=== PATIENT | female | born 1940 | race Caucasian/White ===

== ENCOUNTER 2019-07-30 09:41 | Outpatient (CLI) | payer MEDICARE, OTHER, SELFPAY ==
--- NOTE | 2019-07-30 09:45 | ECG_ITS ---
Measurements Intervals [place] Rate: 68 P: 27 DC: 209 QRS: -7 QRSD: 106 T: 20 QT: 418 QTc: 445 Interpretive Statements SINUS RHYTHM NORMAL ECG Electronically Signed On 07-30-2019 10:26:00 MANAGER SAFE by Jesus Manuel Dash D.O.
[2019-07-30 10:15] LABS: Basophils Percent Auto 0.5 % (0.2-1.2); Eosinophils Absolute Auto 0.3 K/mm3 (0-0.3); Eosinophils Percent Auto 3.6 % (0-4.4); Hematocrit 43.7 % (37.0-47.0); Hemoglobin 13.4 g/dL (12.0-15.0); Immature Granulocyte Absolute 0.03 K/mm3 (0.00-0.031); Immature Granulocyte Percent A 0.4 % (0-0.5); Lymphocytes Absolute Auto 2.16 K/mm3 (0.9-3.2); Mean Corpuscular HGB Conc 30.7 g/dl (32-36); Mean Corpuscular Hemoglobin 26.3 pg (26-34); Mean Corpuscular Volume 85.9 fl (80-100); Mean Platelet Volume 11.4 fl (7.4-10.4); Monocytes Absolute Auto 0.6 K/mm3 (0.1-0.6); Monocytes Percent Auto 7.4 % (2.6-8.5); Neutrophils Absolute Auto 4.4 K/mm3 (1.3-6.7); Neutrophils Percent Auto 59.1 % (45.5-73.1); Platelet Count Result 187 k/mm3 (150-375); Red Blood Count 5.09 M/mm3 (4.2-5.4); White Blood Count 7.4 K/mm3 (4.5-10.0)
[2019-07-30 10:44] LABS: Anisocytosis 2+ (NORMAL); Hypochromasia 2+ (NORMAL); Platelet Estimate Adequate (Adequate)
[2019-07-30 10:56] LABS: Iron 69 ug/dL (37-170)
[2019-07-30 11:05] LABS: Percent Iron Saturation 16 % (20-50)
[2019-07-30 11:50] LABS: Folic Acid 9.1 ng/mL (2.76->20)
== END 2019-07-30 09:42 | disposition home or self-care (01) ==
PROVIDERS: PCP Internal Medicine; Visit Provider Nurse Practitioner
DX: R07.9 Chest pain, unspecified (principal); D64.9 Anemia, unspecified
CPT/HCPCS: 36415; 82607; 82728; 82746; 83540; 83550; 85025; 85055; 93005

== ENCOUNTER 2019-08-14 01:04 | Day surgery (SDC) | payer MEDICARE, OTHER, SELFPAY ==
[2019-08-11 14:12] VITALS: BMI 35.1
[2019-08-14 10:12] VITALS: BP 152/93; PULSE 78; RESP 18; TEMP 36.7; O2SAT 99
--- NOTE | 2019-08-14 10:34 | WPDANESEPPF ---
Anes - Initial Pre Proc Eval Procedure: Operation Date: 08/14/19 10:00 Proposed Procedures p Esophagogastroduodenoscopy & Screening Colonoscopy - Isac De Paz MD Date/Time: 08/14/19 10:34 Surgeon: Isac De Paz MD Pre Op Diagnosis: anemia, neoplasm screening Patient Data Age: 79 Gender: F Height: 5 ft 3 in Weight: 101.3 kg Last Vital Signs Temp 36.7 C 08/14/19 10:12 Pulse 78 08/14/19 10:12 Resp 18 08/14/19 10:12 BP 152/93 H 08/14/19 10:12 Pulse Ox 99 08/14/19 10:12 Allergies Allergy/AdvReac Type Severity Reaction Status Date / Time Sulfa (Sulfonamide Allergy Mild Rash Verified 08/14/19 10:11 Antibiotics) shellfish derived Allergy Unknown Verified 08/14/19 10:11 Home Medications Medication Instructions Recorded Confirmed Type ferrous sulfate 325 mg (65 mg 325 mg PO DAILY #90 tablet 05/29/19 08/14/19 Rx iron) tablet docusate sodium 100 mg capsule 100 mg PO DAILY 07/30/19 08/14/19 History esomeprazole magnesium 40 mg 40 mg PO DAILY #90 cap 07/30/19 08/14/19 Rx capsule,delayed release cefdinir 300 mg PO Q12H 08/11/19 08/14/19 History cholecalciferol (vitamin D3) 4,000 unit PO DAILY 08/11/19 08/14/19 History [Vitamin D3] docusate sodium 50 mg PO DAILY 08/11/19 08/11/19 History pramipexole 0.125 mg PO BID 08/11/19 08/14/19 History pravastatin 20 mg PO DAILY 08/11/19 08/14/19 History pregabalin 150 mg PO HS 08/11/19 08/14/19 History tramadol 50 mg PO Q6H PRN 08/11/19 08/14/19 History valsartan 320 mg PO DAILY 08/11/19 08/14/19 History Patient hx anesthesia problems: none Family hx anesthesia problems: none PMFSH Past Medical History Medical History Depression GERD (gastroesophageal reflux disease) Hyperlipidemia Hypertension IBS (irritable bowel syndrome) Low back pain Post-menopausal Surgical History Surgical History History of back surgery 05/2016 Hx of total knee arthroplasty BL: 2014 Family History Family History Sibling Family history of Alzheimer's disease Breast cancer Father Heart disease Alcoholism Mother Pneumonia Social History Social History Smoking status: Former smoker Smoking end date: 06/18/72 Alcohol intake: current Substance use: never Gender identity (if verbalized by the patient): Female Anes - Eval Final PreProcedure Day of Procedure 08/14/19 10:34 Patient weight: morbidly obese Heart: regular rate and rhythm Lungs: clear to auscultation Airway: Mallampati scale Neurological: alert and oriented Last oral intake: >/= 8 hours ASA classification: III Emergent: no Anesthetic plan: proceed Anesthesia type and monitoring: general GIVS and standard monitoring Informed Consent: The patient's anesthetic plan and its attendant risks and benefits were discussed with the patient/family/POA. Questions were solicited and answers provided to the satisfaction of the patient/family/POA.
[2019-08-14] MEDS: LACTATED RINGERS 1,000 ML 150 ML IV CONT (10:41)
--- NOTE | 2019-08-14 11:00 | P.HP_ITS ---
History of Present Illness History of Present Illness Consent: Risks, benefits, and alternatives have been discussed and questions answered. Patient agrees to proceed with procedure. Chief complaint: anemia, neoplasm screening Narrative: Monet Howard is a 79 year old W female reffered for EGD and COlonoscopy for evaluation of Fe def anemia. No symptoms and evidence of GI blood loss. [facility] Past Medical History Medical History Depression GERD (gastroesophageal reflux disease) Hyperlipidemia Hypertension IBS (irritable bowel syndrome) Low back pain Post-menopausal Surgical History Surgical History History of back surgery 05/2016 Hx of total knee arthroplasty BL: 2014 Family History Family History Sibling Family history of Alzheimer's disease Breast cancer Father Heart disease Alcoholism Mother Pneumonia Social History Social History Smoking status: Former smoker Smoking end date: 06/18/72 Alcohol intake: current Substance use: never Gender identity (if verbalized by the patient): Female Meds Home Medications and Allergies Home Medications Medication Instructions Recorded Confirmed Type ferrous sulfate 325 mg (65 mg 325 mg PO DAILY #90 tablet 05/29/19 08/14/19 Rx iron) tablet docusate sodium 100 mg capsule 100 mg PO DAILY 07/30/19 08/14/19 History esomeprazole magnesium 40 mg 40 mg PO DAILY #90 cap 07/30/19 08/14/19 Rx capsule,delayed release cefdinir 300 mg PO Q12H 08/11/19 08/14/19 History cholecalciferol (vitamin D3) 4,000 unit PO DAILY 08/11/19 08/14/19 History [Vitamin D3] docusate sodium 50 mg PO DAILY 08/11/19 08/11/19 History pramipexole 0.125 mg PO BID 08/11/19 08/14/19 History pravastatin 20 mg PO DAILY 08/11/19 08/14/19 History pregabalin 150 mg PO HS 08/11/19 08/14/19 History tramadol 50 mg PO Q6H PRN 08/11/19 08/14/19 History valsartan 320 mg PO DAILY 08/11/19 08/14/19 History Allergies Allergy/AdvReac Type Severity Reaction Status Date / Time Sulfa (Sulfonamide Allergy Mild Rash Verified 08/14/19 10:11 Antibiotics) shellfish derived Allergy Unknown Verified 08/14/19 10:11 Vital Signs Vital Signs - 24 hr 08/14/19 10:12 Temperature 36.7 C Pulse Rate 78 Respiratory Rate 18 Blood Pressure 152/93 H Pulse Oximetry 99 Exam Const: Orientation/consciousness: patient oriented x3 Resp: Auscultation: clear to auscultation bilaterally Cardio: Rate: regular rate Rhythm: regular rhythm Heart sounds: no murmurs GI: GI Palp: Yes Soft to palpation, No Tenderness to palpation present (GI), Yes No hepatosplenomegaly present and No Palpable mass present Auscultation: normal bowel sounds Neuro: General: patient oriented x3 and no focal motor deficits Extrem: General: no pedal edema Assessment and Plan Additional Plan EGD and Colonoscopy for Fe def anemia
[2019-08-14 11:52] VITALS: BP 91/43; PULSE 77; RESP 22; O2SAT 96
[2019-08-14 12:02] VITALS: BP 98/39; PULSE 65; RESP 16; O2SAT 96
[2019-08-14 12:12] VITALS: BP 128/56; PULSE 68; RESP 21; O2SAT 100
== END 2019-08-14 12:24 | disposition home or self-care (01) ==
PROVIDERS: PCP Internal Medicine; Visit Provider Internal Medicine Gastroenterology
PROC: 0DJ08ZZ Inspection of Upper Intestinal Tract, Via Natural or Artificial Opening Endoscopic (ICD-10-PCS; CPT 43235; principal; 2019-08-14 10:00)
DX: D50.9 Iron deficiency anemia, unspecified (principal); K44.9 Diaphragmatic hernia without obstruction or gangrene; K21.9 Gastro-esophageal reflux disease without esophagitis; Z12.11 Encounter for screening for malignant neoplasm of colon; D12.0 Benign neoplasm of cecum; K64.1 Second degree hemorrhoids; K64.4 Residual hemorrhoidal skin tags; I10 Essential (primary) hypertension; E78.5 Hyperlipidemia, unspecified; K58.9 Irritable bowel syndrome, unspecified; F32.9 Major depressive disorder, single episode, unspecified; Z87.891 Personal history of nicotine dependence; E66.01 Morbid (severe) obesity due to excess calories; Z68.39 Body mass index [BMI] 39.0-39.9, adult
CPT/HCPCS: 45380; 43239; 88305; J2001; J2704; J7120

== ENCOUNTER 2019-12-22 14:24 | Outpatient (CLI) | payer MEDICARE, OTHER, SELFPAY ==
--- NOTE | ~2019-12-22 | CT_ITS ---
EXAMINATION: CT abdomen pelvis wo/w con DATE: 12/22/2019 15:11 INDICATION: Microscopic hematuria TECHNIQUE: Computed tomography (CT) of the abdomen and pelvis was performed without and subsequently with 130 cc Omnipaque 350 intravenous contrast. Automated exposure control and iterative reconstructi on technique were employed. Exam dose: 2302.20 mGy-cm total exam DLP. COMPARISON: None. FINDINGS: There are focal areas of discoid atelectasis or scarring in both lower lobes. No consolidat ion at the lung bases. Normal heart size. There is a large sliding hiatal hernia. Status post cholecystectomy. No hepatic, splenic, pancreatic, adrenal or renal space occupying mass lesion is detected. There are multiple bilateral renal cysts, includin.2 mm upper pole left renal cyst. 1.6 cm anterolateral mid to lower left renal cyst. There are few diverticula of the left colon; no CT evidence of diverticulitis. No bowel obstruction o r intraperitoneal free air. The urinary bladder is unremarkable. Status post hysterectomy. There is extensive calcification of the abdominal aorta but no aneurysm. No intraperitoneal or retrop eritoneal or pelvic mass lesion or adenopathy or ascites. Prominent degenerative disc disease at L1-2. Status post L3-5 posterior fusion. IMPRESSION: Large sliding hiatal hernia Bilateral renal cysts Status post hysterectomy Mild colonic diverticulosis Reviewed, dictated and finalized at [facility]. Reviewed, dictated and finalized at location [facility].
[2019-12-22 14:50] LABS: Estimated Glomerular Filt Rate > 60
== END 2019-12-22 14:25 | disposition home or self-care (01) ==
PROVIDERS: PCP Internal Medicine; Visit Provider Urology
DX: R31.29 Other microscopic hematuria (principal); N28.1 Cyst of kidney, acquired; K57.30 Diverticulosis of large intestine without perforation or abscess without bleeding; K44.9 Diaphragmatic hernia without obstruction or gangrene
CPT/HCPCS: 36415; 74178; Q9967

== ENCOUNTER 2019-12-26 10:01 | Outpatient (CLI) | payer MEDICARE, OTHER, SELFPAY ==
[2019-12-26 10:56] LABS: Basophils Percent Auto 0.4 % (0.2-1.2); Eosinophils Absolute Auto 0.3 K/mm3 (0-0.3); Eosinophils Percent Auto 3.2 % (0-4.4); Hematocrit 45.6 % (37.0-47.0); Hemoglobin 14.9 g/dL (12.0-15.0); Immature Granulocyte Absolute 0.05 K/mm3 (0.00-0.031); Immature Granulocyte Percent A 0.5 % (0-0.5); Lymphocytes Absolute Auto 2.48 K/mm3 (0.9-3.2); Lymphocytes Percent Auto 25.3 % (18.3-44.2); Mean Corpuscular HGB Conc 32.7 g/dl (32-36); Mean Corpuscular Hemoglobin 30.4 pg (26-34); Mean Corpuscular Volume 93.1 fl (80-100); Mean Platelet Volume 12.1 fl (7.4-10.4); Monocytes Absolute Auto 0.6 K/mm3 (0.1-0.6); Monocytes Percent Auto 5.9 % (2.6-8.5); Neutrophils Absolute Auto 6.4 K/mm3 (1.3-6.7); Neutrophils Percent Auto 64.7 % (45.5-73.1); Platelet Count Result 196 k/mm3 (150-375); Red Cell Distribution Width 13.6 % (11.5-14.5); White Blood Count 9.8 K/mm3 (4.5-10.0)
[2019-12-26 11:18] LABS: Albumin Level 4.5 g/dL (3.5-5.1)
[2019-12-26 11:19] LABS: Alanine Aminotransferase 25 U/L (4-35); Alkaline Phosphatase 66 U/L (38-126); Aspartate Amino Transferase 35 U/L (14-36); Bilirubin,Total 0.6 mg/dL (0.2-1.3); Blood Urea Nitrogen 17 mg/dL (7-17); Calcium 9.2 mg/dL (8.4-10.2); Carbon Dioxide 29 mmol/L (22-30); Chloride 101 mmol/L (98-107); Estimated Glomerular Filt Rate > 60; Glucose 124 mg/dL (65-105); Potassium 3.6 mmol/L (3.4-5.0); Sodium 140 mmol/L (137-145)
== END 2019-12-26 10:02 | disposition home or self-care (01) ==
PROVIDERS: PCP Internal Medicine; Visit Provider Clinical Nurse Specialist
DX: D64.9 Anemia, unspecified (principal); I10 Essential (primary) hypertension; R53.83 Other fatigue
CPT/HCPCS: 36415; 80053; 84443; 85025

== ENCOUNTER → 2020-02-06 15:29 | Outpatient (CLI) | payer MEDICARE, OTHER, SELFPAY ==
--- NOTE | ~2020-02-06 | MM_ITS ---
EXAMINATION: MM screening kerri BI w pablo HISTORY: Screening mammogram TECHNIQUE: Craniocaudal and mediolateral oblique 3-D tomosynthesis images were obtained and synthetic 2-D images were generated. CAD analysis was submitted and interpreted. COMPARISON: 10/26/2018, 10/08/2017, 08/30/2016 bilateral digital screening mammogram examinations BREAST PARENCHYMAL COMPOSITION: There are scattered areas of fibroglandular density. FINDINGS: Occasional benign calcifications. There is no evidence of suspicious mass, calcification, o r architectural distortion to suggest malignancy in either breast. There has been no suspicious inter césar change. IMPRESSION: 1. No mammographic evidence of malignancy. 2. Recommend routine screening mammography in one year. BI-RADS Category 2: Benign finding(s). Reviewed, dictated and finalized at location [facility].
== END ==
PROVIDERS: Visit Provider Internal Medicine
DX: Z12.31 Encounter for screening mammogram for malignant neoplasm of breast (principal)
CPT/HCPCS: 77063; 77067

== ENCOUNTER → 2021-02-24 12:46 | Outpatient (CLI) | payer MEDICARE, OTHER, SELFPAY ==
--- NOTE | ~2021-02-24 | MM_ITS ---
EXAMINATION: MM screening kerri BI w pablo HISTORY: Screening mammogram TECHNIQUE: Craniocaudal and mediolateral oblique 3-D tomosynthesis images were obtained and synthetic 2-D images were generated. CAD analysis was submitted and interpreted. COMPARISON: 02/06/2020, 10/26/2018, 10/08/2017 bilateral digital screening mammogram examinations BREAST PARENCHYMAL COMPOSITION: There are scattered areas of fibroglandular density. FINDINGS: There are scattered bilateral benign calcifications. There is no evidence of suspicious mas s, calcification, or architectural distortion to suggest malignancy in either breast. There has been no suspicious interval change. IMPRESSION: 1. No mammographic evidence of malignancy. 2. Recommend routine screening mammography in one year. BI-RADS Category 2: Benign finding(s). Reviewed, dictated and finalized at location [facility].
== END ==
PROVIDERS: PCP Internal Medicine; Visit Provider Internal Medicine
DX: Z12.31 Encounter for screening mammogram for malignant neoplasm of breast (principal)
CPT/HCPCS: 77063; 77067

== ENCOUNTER 2021-11-28 11:04 | Outpatient (CLI) | payer MEDICARE, OTHER, SELFPAY ==
[2021-11-28 11:40] LABS: Basophils Percent Auto 0.3 % (0.2-1.2); Eosinophils Absolute Auto 0.4 K/mm3 (0-0.3); Eosinophils Percent Auto 3.6 % (0-4.4); Hematocrit 28.2 % (37.0-47.0); Immature Granulocyte Absolute 0.06 K/mm3 (0.00-0.031); Immature Granulocyte Percent A 0.6 % (0-0.5); Lymphocytes Absolute Auto 2.04 K/mm3 (0.9-3.2); Lymphocytes Percent Auto 21.2 % (18.3-44.2); Mean Corpuscular HGB Conc 28.4 g/dl (32-36); Mean Corpuscular Hemoglobin 22.2 pg (26-34); Mean Corpuscular Volume 78.1 fl (80-100); Mean Platelet Volume 10.4 fl (7.4-10.4); Monocytes Absolute Auto 0.6 K/mm3 (0.1-0.6); Monocytes Percent Auto 6.5 % (2.6-8.5); Neutrophils Absolute Auto 6.5 K/mm3 (1.3-6.7); Neutrophils Percent Auto 67.8 % (45.5-73.1); Platelet Count Result 284 k/mm3 (150-375); Red Blood Count 3.61 M/mm3 (4.2-5.4); Red Cell Distribution Width 15.8 % (11.5-14.5); Reticulocyte Hemoglobin Conten 19.4 pg (28.2-35.7); Reticulocyte Percent 1.84 % (0.7-4.3); Reticulocytes Absolute 0.07 B/L (32.2-175.7); White Blood Count 9.6 K/mm3 (4.5-10.0)
[2021-11-28 11:48] LABS: Lactate Dehydrogenase 446 U/L (313-618)
[2021-11-28 11:54] LABS: Appearance Urine Slightly Cloudy (Clear); Bilirubin Urine Negative (Negative); Color Urine Yellow (Yellow); Glucose Urine UA Negative (Negative); Ketones Urine Negative (Negative); Leukocyte Esterase Ur Trace LEU/UL (Negative); Nitrate Urine Negative (Negative); Protein Urine Negative (Negative); Urobilinogen Urine 0.2 mg/dL (<2.0)
[2021-11-28 11:57] LABS: Add Urine Microscopic? YES; Blood Urine Trace-Intact (Negative)
[2021-11-28 12:00] LABS: Hemoglobin A1C 6.4 % (<5.7)
[2021-11-28 12:03] LABS: Mucus Urine Rare /lpf; Squamous Epithelial Cell Urine Many /hpf (Few)
[2021-11-28 12:10] LABS: Iron 22 ug/dL (37-170)
[2021-11-28 12:20] LABS: Percent Iron Saturation 4 % (20-50)
[2021-11-28 12:46] LABS: Ferritin 5.95 ng/mL (11.1-264)
[2021-11-28 12:55] LABS: Band Neutrophils Percent 1 % (0-6); Eosinophils Absolute Manual 0.19 K/mm3 (0.02-0.5); Eosinophils Percent Manual 2 % (0-4); Folic Acid 16.4 ng/mL (2.76->20); Lymphocytes Absolute Manual 2.49 K/mm3 (1.1-4.5); Metamyelocytes Percent 1 %; Monocytes Absolute Manual 0.19 K/mm3 (0.1-0.90); Monocytes Percent Manual 2 % (3-9); Neutrophils Absolute Manual 6.52 K/mm3 (1.7-7.2); Neutrophils Percent Manual 67 % (46-73); Promyelocytes Percent 1 %; Total Cells Counted 100
[2021-11-28 12:56] LABS: Anisocytosis 1+ (NORMAL); Hypochromasia 2+ (NORMAL); Large Platelets Present; Microcytosis 1+ (NORMAL); Ovalocytes 1+ (NORMAL); Platelet Estimate Adequate (Adequate); Poikilocytosis 1+ (NORMAL)
[2021-11-30 22:48] LABS: Haptoglobin 247 mg/dL (43-212)
== END 2021-11-28 11:05 | disposition home or self-care (01) ==
PROVIDERS: PCP Internal Medicine; Visit Provider Student in an Organized Health Care Education/Training Program
DX: R73.09 Other abnormal glucose (principal); D64.9 Anemia, unspecified; N39.41 Urge incontinence
CPT/HCPCS: 36415; 81001; 82607; 82728; 82746; 83010; 83036; 83540; 83550; 83615; 85025; 85046

== ENCOUNTER 2021-12-03 09:41 | Observation (INO) | payer MEDICARE, OTHER, SELFPAY ==
[2021-12-03] VITALS (30 sets, daily range): BP systolic 115–150; BP diastolic 48–66; PULSE 69–90; RESP 15–24; TEMP 36.1–37.1; O2SAT 93–100; BMI 35.4
--- NOTE | 2021-12-03 10:01 | PC.NURSE ---
EDP at bedside to assess pt.
--- NOTE | 2021-12-03 10:12 | ED.RECABL ---
HPI - Recheck/Abnormal Lab/Rx General Chief Complaint: Recheck/Abnormal Lab/Rx <Jennifer Chacko PA-C - Last Filed: 12/03/21 13:42> Stated Complaint: anemia <DONNIE Garcia Last Filed: 12/03/21 13:42> Time Seen by Provider: 12/03/21 09:51 <DONNIE Garcia Last Filed: 12/03/21 13:42> Source: patient <DONNIE Garcia Last Filed: 12/03/21 13:42> Mode of arrival: ambulatory <DONNIE Garcia Last Filed: 12/03/21 13:42> Limitations: no limitations <DONNIE Garcia Last Filed: 12/03/21 13:42> History of Present Illness HPI narrative: This is an 81-year-old female that presents to the emergency department for anemia. Reportedly she was called by her primary doctor yesterday and told that her hemoglobin was 8 and she should go to the emergency room. Denies any blood in the stool or dark stools. She does report she has been more fatigued and short of breath over the last couple of months. Per chart review patient does have history of iron deficiency anemia. Patient reports she has not been taking her iron for a while, she is unsure why she stopped this medication. She does report she recently got a new primary doctor. Her anemia was found on some routine blood work earlier this week. Denies fever, chest pain, or abdominal pain. <Jennifer Chacko PA-C - Last Filed: 12/03/21 13:42> Related Data Home Medications: Home Medications Medication Instructions Recorded Confirmed pravastatin 20 mg tablet 20 mg PO DAILY 08/11/19 12/03/21 tramadol 50 mg tablet 50 mg PO Q6H PRN Pain, Mild 08/11/19 12/03/21 mecobalamin (vitamin B12) 1,000 1,000 mcg PO DAILY 08/25/19 12/03/21 mcg chewable tablet docusate sodium 100 mg capsule 100 mg PO DAILY 12/31/19 12/03/21 pramipexole 1 mg tablet 1 - 2 mg PO .QHS 12/31/19 12/03/21 pregabalin 75 mg capsule 75 mg PO BID 12/31/19 12/03/21 valsartan 320 1 tablet PO DAILY 12/31/19 12/03/21 mg-hydrochlorothiazide 25 mg tablet cefdinir 300 mg capsule 300 mg PO Q12H 03/10/20 12/03/21 finasteride 5 mg tablet 10 mg PO BID 03/10/20 12/03/21 <Jennifer Chacko PA-C - Last Filed: 12/03/21 13:42> Allergies/Adverse Reactions: Allergies Allergy/AdvReac Type Severity Reaction Status Date / Time shellfish derived Allergy Mild rash Verified 12/03/21 11:07 Sulfa (Sulfonamide Allergy Mild Rash Verified 12/03/21 11:07 Antibiotics) <Jennifer Chacko PA-C - Last Filed: 12/03/21 13:42> Review of Systems Review of Systems: CONSTITUTIONAL: Denies fever CARDIOVASCULAR: Denies chest pain RESPIRATORY: Denies dyspnea. GASTROINTESTINAL: Denies abdominal pain MUSCULOSKELETAL: Reports chronic back pain <Jennifer Chacko PA-C - Last Filed: 12/03/21 13:42> All systems reviewed & are unremarkable except as noted in HPI and below <Jennifer Chacko PA-C - Last Filed: 12/03/21 13:42> [facility] Past Medical History Medical History: Medical History (Updated 12/03/21 @ 13:42 by Jennifer Chacok PA-C) Depression GERD (gastroesophageal reflux disease) Hyperlipidemia Hypertension IBS (irritable bowel syndrome) Impacted cerumen of both ears (~07/2019) Low back pain Post-menopausal <Jennifer Chacko PA-C - Last Filed: 12/03/21 13:42> Surgical History Surgical History: Surgical History History of back surgery 05/2016 Hx of total knee arthroplasty BL: 2014 <Jennifer Chacko PA-C - Last Filed: 12/03/21 13:42> Family History Family History: Family History Sibling Family history of Alzheimer's disease Breast cancer Father Heart disease Alcoholism Mother Pneumonia <Jennifer Chacko PA-C - Last Filed: 12/03/21 13:42> Social History Social History: Social History (Updated 03/10/20 @ 11:11 by Thi Maddox, [facility]) Smoking status: Former smoker Alcohol intake: current Alcohol use det
[2021-12-03 11:05] LABS: Basophils Percent Auto 0.3 % (0.2-1.2); Eosinophils Absolute Auto 0.3 K/mm3 (0-0.3); Eosinophils Percent Auto 4.3 % (0-4.4); Hematocrit 26.1 % (37.0-47.0); Hemoglobin 7.4 g/dL (12.0-15.0); Immature Granulocyte Absolute 0.05 K/mm3 (0.00-0.031); Immature Granulocyte Percent A 0.7 % (0-0.5); Lymphocytes Absolute Auto 1.39 K/mm3 (0.9-3.2); Lymphocytes Percent Auto 18.2 % (18.3-44.2); Mean Corpuscular HGB Conc 28.4 g/dl (32-36); Mean Corpuscular Volume 77.4 fl (80-100); Mean Platelet Volume 11.1 fl (7.4-10.4); Monocytes Absolute Auto 0.6 K/mm3 (0.1-0.6); Monocytes Percent Auto 8.1 % (2.6-8.5); Neutrophils Absolute Auto 5.2 K/mm3 (1.3-6.7); Neutrophils Percent Auto 68.4 % (45.5-73.1); Platelet Count Result 221 k/mm3 (150-375); Red Blood Count 3.37 M/mm3 (4.2-5.4); Red Cell Distribution Width 15.9 % (11.5-14.5); White Blood Count 7.7 K/mm3 (4.5-10.0)
[2021-12-03 11:16] LABS: Alanine Aminotransferase 13 U/L (6-35); Albumin Level 3.8 g/dL (3.5-5.1); Alkaline Phosphatase 68 U/L (38-126); Anion Gap 4 mmol/L (8-16); Aspartate Amino Transferase 24 U/L (14-36); Bilirubin,Total 0.2 mg/dL (0.2-1.3); Blood Urea Nitrogen 29 mg/dL (7-17); Calcium 8.6 mg/dL (8.4-10.2); Carbon Dioxide 31 mmol/L (22-30); Chloride 104 mmol/L (98-107); Estimated CRCL calculation 44 ml/min; Estimated Glomerular Filt Rate 60; Glucose 107 mg/dL (65-110); Sodium 139 mmol/L (137-145)
[2021-12-03 11:21] LABS: Prothrombin Time 13.2 Seconds (11.1-14.7)
[2021-12-03 11:31] LABS: Anisocytosis 1+ (NORMAL); Hypochromasia 2+ (NORMAL); Microcytosis 1+ (NORMAL); Platelet Estimate Adequate (Adequate)
[2021-12-03 12:13] LABS: Iron 25 ug/dL (37-170)
[2021-12-03 12:22] LABS: Percent Iron Saturation 5 % (20-50)
--- NOTE | 2021-12-03 12:33 | PM.IMHP ---
H&P: HPI History of Present Illness Date/Time: 12/03/21 12:33 Chief Complaint: Abnormal labs Narrative: Patient is an 81-year-old female with a past medical history of depression, GERD, hyperlipidemia, IBS, lower back pain and hypertension. She presented to [facility] after receiving lab work. Her primary care doctor yesterday to older that she had hemoglobin of 18 she should go to the emergency department for further evaluation. At this time the patient denies any hematochezia or melena. She does however endorse fatigue for the last several months as well as minimally short of breath with activity. Per the patient's chart the patient does have a history of iron deficiency anemia. Patient reports that she has not been taking her iron for a significant amount of time. Her anemia was found on routine lab work from earlier this week. Currently the patient denies any fever, chest pain or abdominal pain. While in the emergency department labs were obtained which revealed a hemoglobin of 7.4, hematocrit to 26.1, WBC 7.7, platelet 221, sodium 139, potassium 4.0, chloride 104, anion gap 4, BUN 29, creatinine 0.9. Iron panel was obtained which revealed iron of 25, TIBC 547,% saturation 5, normal LFTs. Patient is subsequently admitted for further evaluation of anemia. Patient will be started on iron supplements and consult Hematology for further management. Review of Systems Review of Systems: All systems reviewed & are unremarkable except as noted in HPI and below PMFSH Past Medical History Medical History (Updated 12/03/21 @ 12:38 by Caroline Garcia APRN) Depression GERD (gastroesophageal reflux disease) Hyperlipidemia Hypertension IBS (irritable bowel syndrome) Impacted cerumen of both ears (~07/2019) Low back pain Post-menopausal Surgical History Surgical History History of back surgery 05/2016 Hx of total knee arthroplasty BL: 2014 Family History Family History Sibling Family history of Alzheimer's disease Breast cancer Father Heart disease Alcoholism Mother Pneumonia Social History Social History (Updated 03/10/20 @ 11:11 by Thi Maddox CMA) Smoking status: Former smoker Smoking end date: 06/18/72 Alcohol intake: current Alcohol use details: rarely Substance use: never Gender identity (if verbalized by the patient): Female Meds Home Medications and Allergies Home Medications Medication Instructions Recorded Confirmed Type pravastatin 20 mg tablet 20 mg PO DAILY 08/11/19 03/10/20 History tramadol 50 mg tablet 50 mg PO Q6H PRN Pain, Mild 08/11/19 03/10/20 History mecobalamin (vitamin B12) 1,000 1,000 mcg PO DAILY 08/25/19 03/10/20 History mcg chewable tablet docusate sodium 100 mg capsule 100 mg PO DAILY 12/31/19 03/10/20 History pramipexole 1 mg tablet 1 - 2 mg PO .QHS 12/31/19 03/10/20 History pregabalin 75 mg capsule 75 mg PO BID 12/31/19 03/10/20 History valsartan 320 1 tablet PO DAILY 12/31/19 03/10/20 History mg-hydrochlorothiazide 25 mg tablet cefdinir 300 mg capsule 300 mg PO Q12H 03/10/20 03/10/20 History cholecalciferol (vitamin D3) 50 50 mcg PO DAILY #90 caps 03/10/20 03/10/20 Rx mcg (2,000 unit) capsule ferrous sulfate 325 mg (65 mg 325 mg PO DAILY #90 tabs 03/10/20 03/10/20 Rx iron) tablet finasteride 5 mg tablet 10 mg PO BID 03/10/20 03/10/20 History Allergies Allergy/AdvReac Type Severity Reaction Status Date / Time shellfish derived Allergy Mild rash Verified 12/03/21 11:07 Sulfa (Sulfonamide Allergy Mild Rash Verified 12/03/21 11:07 Antibiotics) Vital Signs Vital Signs - 24 hr 12/03/21 09:50 12/03/21 09:51 12/03/21 10:00 Temperature Pulse Rate 90 83 88 Respiratory Rate 22 H 24 H 19 Blood Pressure Pulse Oximetry 100 98 94 Oxygen Delivery 12/03/21 10:03 12/03/21 10:21 12/03/21
[2021-12-03 12:50] LABS: Ferritin 5.92 ng/mL (11.1-264)
[2021-12-03 12:54] LABS: Magnesium 2.2 mg/dL (1.6-2.3)
[2021-12-03 13:22] LABS: Folic Acid 16.2 ng/mL (2.76->20)
--- NOTE | 2021-12-03 13:43 | PC.NURSE ---
Additional pink top collected and sent to lab for confirmation.
[2021-12-03 14:31] LABS: Immature Reticulocyte Fraction 35.5 % (3.0-15.9); Reticulocyte Hemoglobin Conten 20.3 pg (28.2-35.7); Reticulocyte Percent 1.78 % (0.7-4.3); Reticulocytes Absolute 0.06 B/L (32.2-175.7)
--- NOTE | 2021-12-03 14:59 | ADMGEN ---
This patient, Monet Howard, was admitted to 3 [facility] Surg Room 327-94 [id number]. Patient/family oriented to hospital policies and general routines including ID bracelet, bed and alarms, visiting hours, pain management, procedures, bathroom and other care routines, personal items, smoking policy, room service/diet, and visiting hours. Information on how to activate the Rapid Response Team has been discussed. Patient/Family are encouraged to report perceived risks to care and to ask questions if they do not understand what they are told or what they should do.
[2021-12-03] MEDS: SODIUM CHLORIDE 0.9% IV 250 ML 30 ML IV CONT (15:47)
[2021-12-03] MEDS: TUBING, BLOOD PLUM PUMP TUBING 1 EACH XX (16:40)
[2021-12-03] MEDS: SODIUM CHLORIDE 0.9% IV 250 ML 40 ML (20:36)
[2021-12-03] MEDS: MELATONIN 5 MG TABLET PO (20:36)
[2021-12-04 00:23] LABS: Basophils Percent Auto 0.3 % (0.2-1.2); Eosinophils Absolute Auto 0.4 K/mm3 (0-0.3); Eosinophils Percent Auto 4.7 % (0-4.4); Hematocrit 32.1 % (37.0-47.0); Hemoglobin 9.6 g/dL (12.0-15.0); Immature Granulocyte Absolute 0.04 K/mm3 (0.00-0.031); Immature Granulocyte Percent A 0.5 % (0-0.5); Lymphocytes Absolute Auto 2.48 K/mm3 (0.9-3.2); Lymphocytes Percent Auto 28.5 % (18.3-44.2); Mean Corpuscular HGB Conc 29.9 g/dl (32-36); Mean Corpuscular Hemoglobin 23.4 pg (26-34); Mean Corpuscular Volume 78.3 fl (80-100); Monocytes Absolute Auto 0.6 K/mm3 (0.1-0.6); Monocytes Percent Auto 6.9 % (2.6-8.5); Neutrophils Absolute Auto 5.1 K/mm3 (1.3-6.7); Neutrophils Percent Auto 59.1 % (45.5-73.1); Platelet Count Result 208 k/mm3 (150-375); Red Cell Distribution Width 16.5 % (11.5-14.5); White Blood Count 8.7 K/mm3 (4.5-10.0)
[2021-12-04 00:28] LABS: Platelet Estimate Adequate (Adequate)
[2021-12-04 00:29] LABS: Anisocytosis 1+ (NORMAL); Hypochromasia 1+ (NORMAL); Microcytosis 1+ (NORMAL)
[2021-12-04 00:30] LABS: Atypical Lymphocytes Present
[2021-12-04 06:00] VITALS: BP 152/68; PULSE 77; RESP 18; TEMP 36.7; O2SAT 96
[2021-12-04 06:15] LABS: Basophils Percent Auto 0.2 % (0.2-1.2); Eosinophils Absolute Auto 0.2 K/mm3 (0-0.3); Hematocrit 33.8 % (37.0-47.0); Hemoglobin 10.3 g/dL (12.0-15.0); Immature Granulocyte Absolute 0.06 K/mm3 (0.00-0.031); Immature Granulocyte Percent A 0.6 % (0-0.5); Lymphocytes Percent Auto 19.6 % (18.3-44.2); Mean Corpuscular HGB Conc 30.5 g/dl (32-36); Mean Corpuscular Hemoglobin 23.4 pg (26-34); Mean Corpuscular Volume 76.8 fl (80-100); Mean Platelet Volume 11.3 fl (7.4-10.4); Monocytes Absolute Auto 0.6 K/mm3 (0.1-0.6); Monocytes Percent Auto 5.6 % (2.6-8.5); Neutrophils Absolute Auto 7.7 K/mm3 (1.3-6.7); Platelet Count Result 223 k/mm3 (150-375); Red Cell Distribution Width 16.2 % (11.5-14.5); White Blood Count 10.7 K/mm3 (4.5-10.0)
--- NOTE | 2021-12-04 07:37 | PM.DS ---
DS: Admitting Diagnosis Discharge Date 12/04/2021 Admitting Diagnosis Acute anemia DS: Discharge Diagnosis Discharge Diagnosis (1) B12 deficiency: Code(s): E53.8 - Deficiency of other specified B group vitamins Status: Acute Assessment and Plan: Replete as needed (2) Morbid obesity: Code(s): E66.01 - Morbid (severe) obesity due to excess calories Status: Acute Assessment and Plan: Continue discussion about dietary modifications (3) Iron deficiency anemia: Code(s): D50.9 - Iron deficiency anemia, unspecified Status: Acute Assessment and Plan: Monitor serum electrolytes, CBC, hemoglobin/hematocrit q.8 hours. If hemoglobin drops below 7 transfuse packed red blood cells Monitor for bloody bowel movements,chest pain,SOB or dizziness/lightheadedness Consult hematology for further recommendations, appreciate assistance DVT Px: SCDs Avoid anti-coagulations Pending results for ferritin, iron, TIBC, rec tech, vitamin B12 and folic acid labs Obtain occult stool to rule out possible other causes of anemia Patient received 2 units packed red blood cells Started on iron supplementation (4) Hypertension: Code(s): I10 - Essential (primary) hypertension Status: Acute Assessment and Plan: Resume home medications DS: Summary Hospital Course Reason for hospitalization: Acute anemia Hospital Course: Patient is an 81-year-old female with a past medical history of depression, GERD, hyperlipidemia, IBS, lower back pain and hypertension.? She presented to [facility] after receiving lab work.? Her primary care doctor yesterday to older that she had hemoglobin of 18 she should go to the emergency department for further evaluation.? At this time the patient denies any hematochezia or melena.? She does however endorse fatigue for the last several months as well as minimally short of breath with activity.? Per the patient's chart the patient does have a history of iron deficiency anemia.? Patient reports that she has not been taking her iron for a significant amount of time.? Her anemia was found on routine lab work from earlier this week.? Currently the patient denies any fever, chest pain or abdominal pain.? While in the emergency department labs were obtained which revealed a hemoglobin of 7.4, hematocrit to 26.1, WBC 7.7, platelet 221, sodium 139, potassium 4.0, chloride 104, anion gap 4, BUN 29, creatinine 0.9.? Iron panel was obtained which revealed iron of 25, TIBC 547,% saturation 5, normal LFTs.? Patient is subsequently admitted for further evaluation of anemia.? Patient will be started on iron supplements and consult Hematology for further management. Hematology was consulted from the emergency department. He suggested administered 2 units of packed red blood cells, repeating labs. And starting iron. Patient was evaluated by Dr. Lyman in the inpatient setting. Follow-up in outpatient setting in follow-up in 2-4 weeks. Status at Discharge Cognitive/behavioral status at discharge: Alert and oriented x4 Time Spent with Patient Time attestation: Total time spent providing and/or coordinating discharge services: Exam Narrative: General: No acute distress. Mental Status: Awake, alert and oriented to person, place, and time with clear speech. Skin: Skin in warm, dry and intact without rashes or lesions. Head: Normocephalic and atraumatic. Eyes: Conjunctivae are clear without exudates or hemorrhage. Sclera is non-icteric. EOM are intact, PERRLA. Ears: The external ear and canal are non-tender and without swelling or discharge. Nose: Nasal mucosa is pink and moist. Septum midline. Nares patent bilaterally. Throat: Oral mucosa pink and moist with good dentition. Tongue midline. Neck: The neck supple without adenopathy. Trachea midline. No JVD. Cardiac: S1 and S2 regular rate and rhythm. No murmurs, gallops, or rubs auscultated. Respiratory: Chest wall sym
[2021-12-04] MEDS: POLYSACCHARIDE IRON COMPLEX 150 MG CAPSULE PO (08:00)
[2021-12-04 09:53] LABS: IFOB Positive Control Positive; Immunochemical Fecal Occult Bl Negative (N)
[2021-12-04] MEDS: ACETAMINOPHEN 325 MG TABLET 650 MG PO (11:29)
--- NOTE | 2021-12-04 15:06 | PCCCNOTE ---
On 12/04/21, the student, [Wendy Mishra], provided care and completed [facility] documentation on this patient. I have reviewed the student's documentation and agree with the findings.
== END 2021-12-04 13:25 | disposition home or self-care (01) ==
LOC: ANHED 12:40 → ANH3MEDSUR 13:42
PROVIDERS: Physician Assistant; Admitting Provider Internal Medicine; Emergency Provider Emergency Medicine; PCP Student in an Organized Health Care Education/Training Program; Visit Provider Nurse Practitioner Family
DX: D50.9 Iron deficiency anemia, unspecified (principal); E53.8 Deficiency of other specified B group vitamins; R06.02 Shortness of breath; I10 Essential (primary) hypertension; E78.5 Hyperlipidemia, unspecified; K21.9 Gastro-esophageal reflux disease without esophagitis; F32.A Depression, unspecified; K58.9 Irritable bowel syndrome, unspecified; Z87.891 Personal history of nicotine dependence; E66.01 Morbid (severe) obesity due to excess calories; Z68.35 Body mass index [BMI] 35.0-35.9, adult
CPT/HCPCS: 36415; 36430; 80053; 82274; 82607; 82728; 82746; 83540; 83550; 83735; 85025; 85046; 85610; 85730; 86850; 86900; 86901; 86920; 97161; 97165; 99285; A9270; G0378; J7050; P9016

== ENCOUNTER → 2022-05-08 13:42 | Outpatient (CLI) | payer MEDICARE, OTHER, SELFPAY ==
--- NOTE | ~2022-05-08 | MM_ITS ---
EXAMINATION: MM screening kerri BI w pablo HISTORY: Screening mammogram TECHNIQUE: Craniocaudal and mediolateral oblique 3-D tomosynthesis images were obtained and synthetic 2-D images were generated. CAD analysis was submitted and interpreted. COMPARISON: 02/24/2021, 02/06/2020, 10/26/2018 bilateral screening mammogram examinations BREAST PARENCHYMAL COMPOSITION: There are scattered areas of fibroglandular density. FINDINGS: Scattered bilateral benign calcifications. There is no evidence of suspicious mass, calcifi cation, or architectural distortion to suggest malignancy in either breast. There has been no suspici ous interval change. IMPRESSION: 1. No mammographic evidence of malignancy. 2. Recommend routine screening mammography in one year. BI-RADS Category 2: Benign finding(s). Reviewed, dictated and finalized at location A. ITY LINEMAN
== END ==
PROVIDERS: PCP Student in an Organized Health Care Education/Training Program; Visit Provider Student in an Organized Health Care Education/Training Program
DX: Z12.31 Encounter for screening mammogram for malignant neoplasm of breast (principal)
CPT/HCPCS: 77063; 77067

== ENCOUNTER → 2022-11-28 10:56 | Outpatient (CLI) | payer MEDICARE, OTHER, SELFPAY ==
--- NOTE | ~2022-11-28 | DEXA_ITS ---
Bone Density Report Name: TIERRA CROCKETT Age: 82 Sex: Female Ethnicity: White Date of : 1940 Indication: postmenopausal; screening for osteoporosis; height loss; hysterectomy; Referring Provider: Krystal, Anton Study: Bone densitometry was performed. Exam Date: November 28, 2022 Accession number: [id number] Bone Density: Region BMD T-score Z-score Classification AP Spine (L1, L2) 1.285 2.8 5.5 Normal Femoral Neck (Left) 0.695 -1.4 1.1 Osteopenia Total Hip (Left) 0.968 0.2 2.5 Normal Femoral Neck (Right) 0.716 -1.2 1.3 Osteopenia Total Hip (Right) 0.980 0.3 2.6 Normal Total Hip Mean 0.974 0.3 2.6 Normal World Health Organization criteria for BMD impression classify patients as: Normal (T-score at or above -1.0), Osteopenia (T-score between -1.0 and -2.5), or Osteoporosis (T-score at or below -2.5). 10-year Fracture Risk(1): Major Osteoporotic Fracture 12% Hip Fracture 2.8% Reported Risk Factors: [place] (), Neck BMD=0.695, BMI=40.2 (1) FRAX(R) Version 3.08. Fracture probability calculated for an untreated patient. Fracture probability may be lower if the patient has received treatment. Clinical Information Provided by Patient: Has the following medical conditions: Hysterectomy Patient maximum height was 63 Menopause Age: 43 No regular weight bearing exercise Drinks caffeinated beverages Onset of menses at age 12 Number of children 2 Impression: The patient has low bone mass, based on the Left Femoral Neck T-score. The patient has an estimated ten-year risk of hip fracture of 2.8% and an estimated ten-year risk of major fracture of 12%, based on the WHO FRAX algorithm. Discussion: BONE DENSITY IS LOW AT ONE OR MORE SKELETAL SITES. This patient's lowest T-score is low at one or more skeletal sites. It meets the World Health Organization's (WHO) criteria for ?low bone mass? (T-score between -1.0 and -2.5). The patient's 10-year risk of fracture as calculated by FRAX is less than the threshold where pharmacological therapy is recommended by the National Osteoporosis Foundation (NOF). However, all treatment decisions require clinical judgment and consideration of individual patient factors, including patient preferences, comorbidities, previous drug use, risk factors not captured in the FRAX model (e.g., frailty, falls, vitamin D deficiency, increased bone turnover, interval significant decline in bone density) and possible under or overestimation of fracture risk by FRAX. The patient should follow a healthful lifestyle (good nutrition with adequate calcium and vitamin D, and appropriate weight-bearing exercise). Follow-Up: Consider repeating this study in 2 to 3 years to reassess this patient's status, or sooner if there is some new clinical indication. Reported
== END ==
PROVIDERS: PCP Student in an Organized Health Care Education/Training Program; Visit Provider Student in an Organized Health Care Education/Training Program
DX: Z78.0 Asymptomatic menopausal state (principal); M85.852 Other specified disorders of bone density and structure, left thigh; M85.851 Other specified disorders of bone density and structure, right thigh
CPT/HCPCS: 77080

== ENCOUNTER 2023-04-11 09:46 | Outpatient (CLI) | payer MEDICARE, OTHER, SELFPAY ==
[2023-04-11 10:08] LABS: Basophils Percent Auto 0.5 % (0.2-1.2); Eosinophils Absolute Auto 0.4 K/mm3 (0-0.3); Eosinophils Percent Auto 5.7 % (0-4.4); Hematocrit 39.5 % (37.0-47.0); Hemoglobin 12.5 g/dL (12.0-15.0); Immature Granulocyte Absolute 0.03 K/mm3 (0.00-0.031); Immature Granulocyte Percent A 0.5 % (0-0.5); Mean Corpuscular HGB Conc 31.6 g/dl (32-36); Mean Corpuscular Hemoglobin 30.7 pg (26-34); Mean Corpuscular Volume 97.1 fl (80-100); Mean Platelet Volume 11.3 fl (7.4-10.4); Monocytes Absolute Auto 0.5 K/mm3 (0.1-0.6); Monocytes Percent Auto 7.2 % (2.6-8.5); Neutrophils Absolute Auto 4.1 K/mm3 (1.3-6.7); Neutrophils Percent Auto 63.1 % (45.5-73.1); Platelet Count Result 173 k/mm3 (150-375); Red Blood Count 4.07 M/mm3 (4.2-5.4); Red Cell Distribution Width 13.9 % (11.5-14.5); White Blood Count 6.5 K/mm3 (4.5-10.0)
[2023-04-11 12:10] LABS: Iron 66 ug/dL (37-170)
[2023-04-11 12:14] LABS: Anion Gap 5 mmol/L (8-16); Blood Urea Nitrogen 17 mg/dL (7-17); Calcium 9.5 mg/dL (8.4-10.2); Carbon Dioxide 31 mmol/L (22-30); Chloride 102 mmol/L (98-107); Estimated Glomerular Filt Rate > 60; Glucose 111 mg/dL (65-110); Potassium 4.1 mmol/L (3.4-5.0); Sodium 138 mmol/L (137-145)
[2023-04-11 12:19] LABS: Percent Iron Saturation 17 % (20-50)
[2023-04-11 13:22] LABS: Folic Acid > 20.0 ng/mL (2.76->20)
== END 2023-04-11 09:47 | disposition home or self-care (01) ==
PROVIDERS: PCP Student in an Organized Health Care Education/Training Program; Visit Provider Internal Medicine Hematology & Oncology
DX: D64.9 Anemia, unspecified (principal)
CPT/HCPCS: 36415; 80048; 82607; 82728; 82746; 83540; 83550; 85025

== ENCOUNTER 2023-06-20 10:13 | Outpatient (CLI) | payer MEDICARE, OTHER, SELFPAY ==
--- NOTE | ~2023-06-20 | MR_ITS ---
MRI of the thoracic spine Clinical History: Postlaminectomy syndrome Technique: Axial T2-weighted and gradient images, and sagittal T1-weighted, T2-weighted, and STIR jarret ges were acquired. Findings: No acute fracture or subluxation identified. Vertebral bodies maintain normal height and al ignment. No suspicious bone marrow signal abnormality seen. Probable intraosseous hemangioma T2. No significant disc bulge or herniation identified. No spinal canal stenosis or cord compression iden tified. No epidural mass or collection. Paravertebral soft tissues are unremarkable. Impression: No significant abnormality seen. Reviewed, dictated and finalized at [facility]. MANAGER Impression: No significant abnormality seen.
== END 2023-06-20 10:14 ==
PROVIDERS: PCP Anesthesiology Pain Medicine; Visit Provider Anesthesiology Pain Medicine
DX: M96.1 Postlaminectomy syndrome, not elsewhere classified (principal)
CPT/HCPCS: 72146

== ENCOUNTER → 2023-07-13 11:50 | Outpatient (CLI) | payer MEDICARE, OTHER, SELFPAY ==
--- NOTE | ~2023-07-13 | MM_ITS ---
EXAMINATION: MM screening kerri BI w pablo HISTORY: Screening mammogram, family history of breast cancer in her sister. TECHNIQUE: Craniocaudal and mediolateral oblique 3-D tomosynthesis images were obtained and synthetic 2-D images were generated. CAD analysis was submitted and interpreted. COMPARISON: 05/08/2022, 02/24/2021, 02/06/2020 BREAST PARENCHYMAL COMPOSITION: There are scattered areas of fibroglandular density. FINDINGS: No suspicious mass, calcification, or architectural distortion are identified in either angel ast to suggest malignancy. There has been no suspicious interval change. IMPRESSION: 1. No mammographic evidence of malignancy. 2. Recommend routine screening mammography while the patient remains in good health. BI-RADS Category 1: Negative Reviewed, dictated and finalized at location A. AL HEALTH NURSE IMPRESSION: 1. No mammographic evidence of malignancy. 2. Recommend routine screening mammography while the patient remains in good he alth. BI-RADS Category 1: Negative
== END ==
PROVIDERS: PCP Student in an Organized Health Care Education/Training Program; Visit Provider Student in an Organized Health Care Education/Training Program
DX: Z12.31 Encounter for screening mammogram for malignant neoplasm of breast (principal)
CPT/HCPCS: 77063; 77067

== ENCOUNTER 2023-09-17 11:07 | Outpatient (CLI) | payer MEDICARE, OTHER, SELFPAY ==
[2023-09-17 11:29] LABS: Basophils Percent Auto 0.2 % (0.2-1.2); Eosinophils Percent Auto 0.2 % (0-4.4); Hemoglobin 13.4 g/dL (12.0-15.0); Immature Granulocyte Absolute 0.13 K/mm3 (0.00-0.031); Lymphocytes Absolute Auto 1.55 K/mm3 (0.9-3.2); Mean Corpuscular HGB Conc 31.9 g/dl (32-36); Mean Corpuscular Hemoglobin 31.4 pg (26-34); Mean Corpuscular Volume 98.4 fl (80-100); Mean Platelet Volume 11.9 fl (7.4-10.4); Monocytes Percent Auto 7.7 % (2.6-8.5); Neutrophils Absolute Auto 10.2 K/mm3 (1.3-6.7); Neutrophils Percent Auto 78.9 % (45.5-73.1); Platelet Count Result 180 k/mm3 (150-375); Red Blood Count 4.27 M/mm3 (4.2-5.4); Red Cell Distribution Width 13.4 % (11.5-14.5); White Blood Count 12.9 K/mm3 (4.5-10.0)
[2023-09-17 16:31] LABS: Iron 139 ug/dL (37-170)
[2023-09-17 16:40] LABS: Percent Iron Saturation 36 % (20-50)
[2023-09-17 17:43] LABS: Folic Acid 8.9 ng/mL (2.76->20)
== END 2023-09-17 11:08 | disposition home or self-care (01) ==
LOC: ANHLAB 11:09
PROVIDERS: PCP Student in an Organized Health Care Education/Training Program; Visit Provider Internal Medicine Hematology & Oncology
DX: D64.9 Anemia, unspecified (principal)
CPT/HCPCS: 36415; 82607; 82728; 82746; 83540; 83550; 85025

== ENCOUNTER 2023-09-27 16:00 | Outpatient (CLI) | payer MEDICARE, OTHER, SELFPAY ==
--- NOTE | 2023-09-27 | ECG_ITS ---
SEE SCANNED COPY FOR CONFIRMED REPORT MTDD
[2023-09-27 16:56] LABS: Basophils Percent Auto 0.3 % (0.2-1.2); Eosinophils Absolute Auto 0.5 K/mm3 (0-0.3); Eosinophils Percent Auto 4.5 % (0-4.4); Hematocrit 38.9 % (37.0-47.0); Hemoglobin 12.2 g/dL (12.0-15.0); Immature Granulocyte Percent A 1.8 % (0-0.5); Lymphocytes Absolute Auto 2.09 K/mm3 (0.9-3.2); Lymphocytes Percent Auto 18.6 % (18.3-44.2); Mean Corpuscular HGB Conc 31.4 g/dl (32-36); Mean Corpuscular Volume 98.7 fl (80-100); Mean Platelet Volume 12.2 fl (7.4-10.4); Monocytes Absolute Auto 0.8 K/mm3 (0.1-0.6); Monocytes Percent Auto 7.1 % (2.6-8.5); Neutrophils Absolute Auto 7.6 K/mm3 (1.3-6.7); Neutrophils Percent Auto 67.7 % (45.5-73.1); Platelet Count Result 168 k/mm3 (150-375); Red Blood Count 3.94 M/mm3 (4.2-5.4); Red Cell Distribution Width 13.9 % (11.5-14.5); White Blood Count 11.2 K/mm3 (4.5-10.0)
[2023-09-27 17:02] LABS: Appearance Urine Cloudy (Clear); Bacteria Urine 3+ /hpf; Bilirubin Urine Negative (Negative); Blood Urine 2+ (Negative); Color Urine Yellow (Yellow); Glucose Urine UA Negative (Negative); Ketones Urine Negative (Negative); Leukocyte Esterase Ur 3+ LEU/UL (Negative); Nitrate Urine Negative (Negative); Protein Urine Negative (Negative); Specific Grav Ur 1.021 (1.001-1.035); Squamous Epithelial Cell Urine Moderate /hpf (Few); Urobilinogen Urine 0.2 mg/dL (<2.0); WBC Urine 51-100 /hpf (0-3)
[2023-09-27 17:03] LABS: Add Urine Microscopic? YES
[2023-09-27 17:23] LABS: Erythrocyte Sedimentation Rate 42 mm/hr (0-20)
[2023-09-27 18:21] LABS: Alanine Aminotransferase 30 U/L (6-35); Albumin Level 4.2 g/dL (3.5-5.1); Alkaline Phosphatase 59 U/L (38-126); Anion Gap 4 mmol/L (4-12); Aspartate Amino Transferase 33 U/L (14-36); Bilirubin,Total 0.4 mg/dL (0.2-1.3); Blood Urea Nitrogen 28 mg/dL (7-17); CRP 1.2 mg/dL (<1.0); Calcium 9.8 mg/dL (8.4-10.2); Carbon Dioxide 33 mmol/L (22-30); Chloride 105 mmol/L (98-107); Estimated Glomerular Filt Rate 43; Glucose 104 mg/dL (65-110); Sodium 142 mmol/L (137-145)
== END 2023-09-27 16:01 | disposition home or self-care (01) ==
PROVIDERS: PCP Student in an Organized Health Care Education/Training Program; Visit Provider Nurse Practitioner Family
DX: Z01.818 Encounter for other preprocedural examination (principal)
CPT/HCPCS: 36415; 80053; 81001; 85025; 85652; 86140; 87086; 93005

== ENCOUNTER 2023-12-10 09:10 | Outpatient (CLI) | payer MEDICARE, OTHER, SELFPAY ==
[2023-12-10 09:29] LABS: Basophils Percent Auto 0.4 % (0.2-1.2); Eosinophils Absolute Auto 0.4 K/mm3 (0-0.3); Eosinophils Percent Auto 4.6 % (0-4.4); Hematocrit 41.8 % (37.0-47.0); Hemoglobin 13.4 g/dL (12.0-15.0); Immature Granulocyte Absolute 0.05 K/mm3 (0.00-0.031); Immature Granulocyte Percent A 0.6 % (0-0.5); Lymphocytes Absolute Auto 1.31 K/mm3 (0.9-3.2); Mean Corpuscular HGB Conc 32.1 g/dl (32-36); Mean Corpuscular Hemoglobin 30.9 pg (26-34); Mean Corpuscular Volume 96.5 fl (80-100); Mean Platelet Volume 11.2 fl (7.4-10.4); Monocytes Absolute Auto 0.5 K/mm3 (0.1-0.6); Monocytes Percent Auto 6.1 % (2.6-8.5); Neutrophils Absolute Auto 5.9 K/mm3 (1.3-6.7); Neutrophils Percent Auto 72.3 % (45.5-73.1); Platelet Count Result 177 k/mm3 (150-375); Red Blood Count 4.33 M/mm3 (4.2-5.4); White Blood Count 8.2 K/mm3 (4.5-10.0)
[2023-12-10 10:22] LABS: Iron 75 ug/dL (37-170)
[2023-12-10 10:23] LABS: Anion Gap 7 mmol/L (4-12); Blood Urea Nitrogen 16 mg/dL (7-17); Calcium 8.9 mg/dL (8.4-10.2); Carbon Dioxide 27 mmol/L (22-30); Chloride 107 mmol/L (98-107); Estimated Glomerular Filt Rate > 60; Glucose 113 mg/dL (65-110); Potassium 3.9 mmol/L (3.4-5.0); Sodium 141 mmol/L (137-145)
[2023-12-10 10:33] LABS: Percent Iron Saturation 22 % (20-50)
[2023-12-10 11:29] LABS: Folic Acid 13.8 ng/mL (2.76->20)
== END 2023-12-10 09:11 | disposition home or self-care (01) ==
LOC: ANHLAB 09:12
PROVIDERS: PCP Student in an Organized Health Care Education/Training Program; Visit Provider Internal Medicine Hematology & Oncology
DX: D64.9 Anemia, unspecified (principal)
CPT/HCPCS: 36415; 80048; 82607; 82728; 82746; 83540; 83550; 85025

== ENCOUNTER 2024-02-16 19:27 | Emergency (ER) | payer MEDICARE, OTHER, SELFPAY ==
[2024-02-16] VITALS (28 sets, daily range): BP systolic 132–200; BP diastolic 82–175; PULSE 86–106; RESP 15–34; TEMP 36.6; O2SAT 86–100
--- NOTE | ~2024-02-16 | XR_ITS ---
Upright portable view of the abdomen Clinical history: NG tube placement Findings: NG tube is in satisfactory position. Bowel gas pattern is nonspecific. No evidence for obst ruction or free air. No abnormal mass lesion or calcification is seen. Osseous structures are intact. Enlarged cardiac silhouette noted. Impression: NG tube in satisfactory position. Cardiomegaly. Reviewed, dictated and finalized at location . Impression: NG tube in satisfactory position. Cardiomegaly.
--- NOTE | ~2024-02-16 | CT_ITS ---
EXAMINATION: CTA chest abdomen pelvis DATE: 02/16/2024 20:16 INDICATION: Rib and chest pain radiating down to the left abdomen TECHNIQUE: Computed tomographic angiography (CTA) of the chest, abdomen, and pelvis was performed wit hout and with 100 mL Omnipaque-350 intravenous contrast. Volume-rendered 3D-reconstructions of the ao rta and large arteries were constructed by the technologist on a separate workstation. Automated expo sure control and iterative reconstruction technique were employed. The dose-length product was 1293.7 mGy-cm. COMPARISON: 12/22/2019 FINDINGS: Chest: Large sliding-type hiatal hernia with organoaxial volvulus. A distended portion of the previously her niated and proximal body of the stomach now extends back into the abdomen. There is compressive atele ctasis in the lingula and bilateral lower lobes along the margins of a hiatal hernia. Additional mild dependent atelectasis in the right upper and lower lobes. No pneumonia, pulmonary edema or pleural e ffusion. Calcified nodule at the lingula along with calcified mediastinal lymph nodes consistent with old granulomatous disease. Heart size is normal. No pericardial effusion. Thoracic aorta is normal i n caliber with no dissection. No pathologically enlarged thoracic lymphadenopathy. There is nodularit y minimally significant calcified atherosclerosis of the normal caliber aorta and many of the other a rteries. No dissection. Multinodular goiter which includes a 3.1 cm mixed solid and cystic mass in th e left thyroid lobe. Mild to moderate thoracic spondylosis with chronic appearing mild anterior wedgi ng at T6 and T7. Abdomen and pelvis: Cholecystectomy clips the gallbladder fossa. Diffuse hepatic steatosis. Splenic calcification consist ent with old granulomatous disease. Pancreas, bilateral adrenal glands and right kidney are normal. T here is a couple left renal cysts the larger measuring 2.5 cm. There are couple sigmoid diverticula w ithout adjacent inflammatory stranding to suggest diverticulitis. No bowel obstruction. Bladder is no rmal. The uterus is not identified and has likely been surgically resected. No free intraperitoneal g as or fluid. No pathologically enlarged abdominal or pelvic lymphadenopathy. Severe lumbar spondylosi s with L3 and L4 laminectomies and L3-L5 posterior spinal fusion with bilateral vertical claritza and pedi jesus screw fixation. Spinal stimulator lead extends into the lower thoracic posterior central canal wi th distal tips at the level of T7. IMPRESSION: 1. Large hiatal hernia containing a significant portion of the fluid distended stomach with a previou sly herniated portion of the proximal body of the stomach now extending back into the abdomen. 2. No acute cardiopulmonary disease or acute intra-abdominal/pelvic process. 3. Multinodular goiter including a 3 cm mixed solid and cystic mass in the left thyroid lobe. Could c onsider follow-up thyroid ultrasound for risk stratification. Reviewed, dictated and finalized at location A. IMPRESSION: 1. Large hiatal hernia containing a significant portion of the fluid distended stomach with a previously herniated portion of the proximal body of the stomach now extending back into the abdomen. 2. No acute cardiopulmonary disease or acute intra-abdominal/pelvic process. 3. Multinodular goiter including a 3 cm mixed solid and cystic mass in the left thyroid lobe. Could consider follow-up thyroid ultrasound for risk stratificat ion.
--- NOTE | 2024-02-16 19:25 | ED.GENADULT ---
HPI - General Adult General Chief complaint: Chest Pain Stated complaint: CHEST PAIN History of Present Illness HPI narrative: This is an 83-year-old female presenting ED with chief of chest pain nausea vomiting. Patient states that she has been having nauseousness for the last 4-6 weeks. However today after she ate she developed a ripping pain below her sternum radiating to the left side. This then associated with vomiting although she feels that she is unable to vomit anything up. Patient has never had pain like this before. It is worse with vomiting. There are no alleviating factors. Patient denies fevers chills productive cough shortness of breath exertional components. Related Data Home Medications Medication Instructions Recorded Confirmed pravastatin 20 mg tablet 20 mg PO DAILY 08/11/19 11/16/22 tramadol 50 mg tablet 50 mg PO Q6H PRN Pain, Mild 08/11/19 11/16/22 docusate sodium 100 mg capsule 100 mg PO DAILY 12/31/19 11/16/22 pramipexole 1 mg tablet 1 - 2 mg PO .QHS 12/31/19 11/16/22 pregabalin 75 mg capsule 75 mg PO BID 12/31/19 11/16/22 valsartan 320 1 tablet PO DAILY 12/31/19 11/16/22 mg-hydrochlorothiazide 25 mg tablet cefdinir 300 mg capsule 300 mg PO Q12H 03/10/20 11/16/22 duloxetine 30 mg capsule,delayed 30 mg PO DAILY 02/09/22 11/16/22 release duloxetine 60 mg capsule,delayed 60 mg PO DAILY 02/09/22 11/16/22 release famotidine 40 mg tablet 40 mg PO BID 02/09/22 11/16/22 Allergies Allergy/AdvReac Type Severity Reaction Status Date / Time shellfish derived Allergy Mild rash Verified 02/16/24 19:39 Sulfa (Sulfonamide Allergy Mild Rash Verified 02/16/24 19:39 Antibiotics) FORMERLY [facility], 1928–1983 Past Medical History Medical History (Updated 02/17/24 @ 01:33 by Chandra Larry MD) Depression Dysphagia GERD (gastroesophageal reflux disease) Hiatal hernia Hyperlipidemia Hypertension IBS (irritable bowel syndrome) Impacted cerumen of both ears (~07/2019) Low back pain Post-menopausal Surgical History Surgical History History of back surgery 05/2016 Hx of total knee arthroplasty BL: 2014 Family History Family History Sibling Family history of Alzheimer's disease Breast cancer Father Heart disease Alcoholism Mother Pneumonia Social History Social History Smoking packs per day: 1 Smoking cigarettes per day: 20.0 Years smoked: 2 Smoking pack-years: 2.00 Smoking status: Former smoker Tobacco type: cigarettes Alcohol intake: current Alcohol use details: rarely Substance use: never Living arrangements: with family Occupation/Education: retired Gender identity (if verbalized by the patient): Female Spiritual care concerns: No Exam Narrative: APPEARANCE: Patient appears uncomfortable Head: atraumatic. EYES: EOMI, NOSE: Atraumatic NECK: Trachea midline RESPIRATORY: Tachypneic, clear lung sounds CARDIOVASCULAR: RRR, no peripheral edema ABDOMINAL: Epigastric tenderness MUSCULOSKELETAl: No obvious deformities NEURO: Alert. Moving 4/4 extremities SKIN:: Warm, dry. Normal color PSYCHIATRIC: Normal affect Course Vital Signs Vital signs: Vital Signs Temperature 97.9 F 02/16/24 19:23 Pulse Rate 87 02/16/24 19:23 Respiratory Rate 15 02/16/24 19:23 Blood Pressure 132/98 H 02/16/24 19:23 Pulse Oximetry 99 02/16/24 19:23 Oxygen Delivery Room Air 02/16/24 19:23 Temperature 98.1 F 02/17/24 06:09 Pulse Rate 110 H 02/17/24 06:01 Respiratory Rate 15 02/17/24 06:01 Blood Pressure 181/92 H 02/17/24 06:01 Pulse Oximetry 97 02/17/24 06:01 Oxygen Delivery Nasal Cannula 02/16/24 22:28 Oxygen Flow Rate 2 02/16/24 22:28 Medical Decision Making MDM Narrative Medical decision making narrative: -Course: 83-year-old female presenting with repe
[2024-02-16] MEDS: ONDANSETRON INJ 4 MG/2 ML VIAL 8 MG IV PUSH (19:30)
--- NOTE | 2024-02-16 19:34 | ECG_ITS ---
Test Date: 2024-02-16 19:33:28 Measurements Intervals [place] Rate: 82 P: 23 MA: 165 QRS: -33 QRSD: 100 T: 55 QT: 398 QTc: 468 Interpretive Statements SINUS RHYTHM LEFT AXIS DEVIATION PATTERN CONSISTENT WITH PULMONARY DISEASE CONSIDER INFERIOR INFARCT, AGE INDETERMINATE BASELINE ARTIFACT- II, III, AVR, AVL, AVF ABNORMAL ECG No previous ECG available for comparison Electronically Signed On 02-17-2024 07:24:32 CDT by Jesus Manuel Dash D.O.
--- NOTE | 2024-02-16 19:35 | ECG_ITS ---
Test Date: 2024-02-16 22:24:55 Measurements Intervals [place] Rate: 83 P: 23 MD: 164 QRS: -32 QRSD: 98 T: 49 QT: 398 QTc: 470 Interpretive Statements SINUS RHYTHM LEFT AXIS DEVIATION POSSIBLE LEFT ATRIAL ENLARGEMENT PATTERN CONSISTENT WITH PULMONARY DISEASE BORDERLINE ECG Compared to ECG 02/16/2024 19:33:28 NO SIGNIFICANT CHANGE Electronically Signed On 02-17-2024 07:28:41 CDT by Jesus Manuel Dash D.O.
[2024-02-16 19:50] LABS: Basophils Percent Auto 0.3 % (0.2-1.2); Eosinophils Absolute Auto 0.1 K/mm3 (0-0.3); Eosinophils Percent Auto 0.8 % (0-4.4); Hematocrit 47.9 % (37.0-47.0); Hemoglobin 15.6 g/dL (12.0-15.0); Immature Granulocyte Absolute 0.07 K/mm3 (0.00-0.031); Immature Granulocyte Percent A 0.5 % (0-0.5); Immature Platelet Fraction Pct 9.1 % (0.9-11.2); Lymphocytes Absolute Auto 1.65 K/mm3 (0.9-3.2); Mean Corpuscular HGB Conc 32.6 g/dl (32-36); Mean Platelet Volume 11.8 fl (7.4-10.4); Monocytes Absolute Auto 0.5 K/mm3 (0.1-0.6); Monocytes Percent Auto 3.3 % (2.6-8.5); Neutrophils Absolute Auto 12.6 K/mm3 (1.3-6.7); Neutrophils Percent Auto 84.1 % (45.5-73.1); Platelet Count Result 199 k/mm3 (150-375); Red Blood Count 5.04 M/mm3 (4.2-5.4); Red Cell Distribution Width 13.9 % (11.5-14.5)
[2024-02-16 20:00] LABS: Lactic Acid Reflex 1.2 mmol/L (0.7-2.0)
[2024-02-16 20:09] LABS: INR 0.9; Prothrombin Time 12.7 Seconds (11.1-14.7)
[2024-02-16 20:10] LABS: Partial Thromboplastin Time 20.6 Seconds (22.3-36.8)
[2024-02-16 20:21] LABS: Alanine Aminotransferase 25 U/L (6-35); Albumin Level 4.6 g/dL (3.5-5.1); Alkaline Phosphatase 80 U/L (38-126); Anion Gap 12 mmol/L (4-12); Aspartate Amino Transferase 35 U/L (14-36); Bilirubin,Total 0.5 mg/dL (0.2-1.3); Blood Urea Nitrogen 18 mg/dL (7-17); Carbon Dioxide 28 mmol/L (22-30); Chloride 100 mmol/L (98-107); Estimated CRCL calculation 64 ml/min; Estimated Glomerular Filt Rate > 60; Glucose 202 mg/dL (65-110); Lipase 47 U/L (23-300); Potassium 3.5 mmol/L (3.4-5.0); Sodium 140 mmol/L (137-145)
[2024-02-16 20:24] LABS: Influenza A QL RT-PCR Negative (Negative); Influenza B QL RT-PCR Negative (Negative); RSV RNA, RT-PCR Negative (Negative); SARS-CoV-2 RNA PCR Negative (Negative)
[2024-02-16 20:32] LABS: Troponin I < 0.012 ng/mL (0.000-0.034)
[2024-02-16] MEDS: HYDROmorphone HCL INJ (*CRX) 1 MG/ML SYR 0.5 MG IV PUSH ×3 (20:37→22:27)
[2024-02-16] MEDS: PANTOPRAZOLE SODIUM IV 40 MG VIAL IV PUSH (20:37)
[2024-02-16 20:47] LABS: Bacteria Urine None Seen /hpf; Non Pathogenic Casts 0-2; Squamous Epithelial Cell Urine None Seen /hpf (Few); WBC Urine 0-5 /hpf (0-3)
[2024-02-16 20:54] LABS: Add Urine Microscopic? YES; Appearance Urine Clear (Clear); Color Urine Yellow (Yellow); Specific Grav Ur 1.015 (1.001-1.035)
[2024-02-16 20:55] LABS: Bilirubin Urine Negative (Negative); Blood Urine Trace (Negative); Glucose Urine UA Negative (Negative); Ketones Urine 2+ mg/dL (Negative); Nitrate Urine Negative (Negative); Protein Urine 1+ mg/dL (Negative); Urobilinogen Urine 0.2 mg/dL (<2.0)
[2024-02-16 20:56] LABS: Leukocyte Esterase Ur Negative LEU/UL (Negative)
--- NOTE | 2024-02-16 22:08 | PC.NURSE ---
EDP Zych visualizes KUB XR and gives okay to use.
[2024-02-16] MEDS: KETOROLAC 15 MG/ML VIAL (*BKC) IV PUSH (22:22)
[2024-02-16] MEDS: FAMOTIDINE 20 MG/2 ML VIAL IV PUSH (22:24)
[2024-02-16] MEDS: METOCLOPRAMIDE HCL INJ 10 MG/2 ML VIAL IV PUSH (22:24)
[2024-02-16] MEDS: diazePAM INJ (*CRX) 10 MG/2 ML SYRINGE 5 MG IV PUSH (22:50)
[2024-02-16 22:55] LABS: Troponin I < 0.012 ng/mL (0.000-0.034)
--- NOTE | 2024-02-16 23:44 | PC.NURSE ---
AT 2341 ON 02/16/2024 [facility] CALLED AND ASSIGNED BED #[id number] AT [facility]. TO CALL REPORT AT . PT'S PRIMARY NURSE MADE AWARE AT THIS TIME.
[2024-02-17] VITALS (41 sets, daily range): BP systolic 108–204; BP diastolic 76–148; PULSE 102–115; RESP 15–28; TEMP 36.7; O2SAT 92–100
--- NOTE | 2024-02-17 00:13 | PC.NURSE ---
Report called at 0058 to Bg SON at [facility].
[2024-02-17] MEDS: diazePAM INJ (*CRX) 10 MG/2 ML SYRINGE 5 MG IV PUSH (02:00)
--- NOTE | 2024-02-17 03:14 | PC.NURSE ---
Report received from ADELAIDA Crowley. Assumed care of patient at this time. Patient waiting for EMS to transfer patient to [place].
--- NOTE | 2024-02-17 06:08 | PC.NURSE ---
Patient brief changed, patient repositioned. Patient requested to speak to provider. ERP notified and went to speak with patient. New orders placed.
[2024-02-17] MEDS: MIDAZOLAM HCL (*CRX) 2 MG/2 ML VIAL IV PUSH (06:13)
[2024-02-17] MEDS: HYDROmorphone HCL INJ (*CRX) 1 MG/ML SYR 0.5 MG IV PUSH (06:13)
--- NOTE | 2024-02-17 07:49 | PC.NURSE ---
AM care given, linens & gown changed. NG tube intact to right nare, connected to interment suction & patent. Assisted to bedpan voided clear yellow urine. SL to left a/c out gauze dressing applied. Pt & spouse informed of tentative time of transfer of 829.
== END 2024-02-17 09:20 | disposition short-term general hospital (02) ==
PROVIDERS: Emergency Medicine; Emergency Provider Emergency Medicine; PCP Student in an Organized Health Care Education/Training Program
DX: K44.9 Diaphragmatic hernia without obstruction or gangrene (principal); Z20.822 Contact with and (suspected) exposure to COVID-19; I10 Essential (primary) hypertension; E78.5 Hyperlipidemia, unspecified; K21.9 Gastro-esophageal reflux disease without esophagitis; K58.9 Irritable bowel syndrome, unspecified; F32.A Depression, unspecified; Z96.653 Presence of artificial knee joint, bilateral; Z87.891 Personal history of nicotine dependence; Z79.899 Other long term (current) drug therapy; R94.31 Abnormal electrocardiogram [ECG] [EKG]; I51.7 Cardiomegaly; E04.9 Nontoxic goiter, unspecified
CPT/HCPCS: 36415; 71275; 74174; 80053; 81001; 83605; 83690; 83735; 84484; 85025; 85055; 85610; 85730; 87637; 93005; 96374; 96375; 96376; 99285; J1170; J1885; J2250; J2405; J2470; J2765; J3360; Q9967

== ENCOUNTER 2024-03-18 13:22 | Outpatient (CLI) | payer MEDICARE, OTHER, SELFPAY ==
--- NOTE | ~2024-03-18 | CT_ITS ---
Noncontrast CT scan of the right shoulder CLINICAL HISTORY: Chronic pain TECHNIQUE: Axial noncontrast imaging of the right shoulder was performed. Sagittal and coronal reform atted images were constructed. Dose reduction technique was used on this scan by utilizing automated exposure control and iterative reconstruction technique. The dose-length product (DLP) was 566.09 mGy -cm. FINDINGS: No acute fracture or dislocation is identified. Humeral head is high riding, with mild acet abularization of the acromion. There is moderate to advanced AC joint degenerative change. There is m ild glenohumeral joint degenerative change. No significant joint effusion evident. No gross soft tissue abnormality seen. No soft tissue mass or fluid collection identified. Visualized right lung is clear. IMPRESSION: High riding humeral head is suspicious for underlying full-thickness rotator cuff tear. Spinal stimul ator is a contraindication to MR, then consider CT arthrogram of the shoulder to further confirm rota tor cuff tear, as indicated, and if this will affect management. Moderate to advanced AC joint degenerative change. Mild glenohumeral joint degenerative change. Reviewed, dictated and finalized at location . IMPRESSION: High riding humeral head is suspicious for underlying full-thickness rotator cu ff tear. Spinal stimulator is a contraindication to MR, then consider CT arthro gram of the shoulder to further confirm rotator cuff tear, as indicated, and if this will affect management. Moderate to advanced AC joint degenerative change. Mild glenohumeral joint dege nerative change.
== END 2024-03-18 13:23 | disposition home or self-care (01) ==
PROVIDERS: PCP Student in an Organized Health Care Education/Training Program; Visit Provider Student in an Organized Health Care Education/Training Program
DX: M19.011 Primary osteoarthritis, right shoulder (principal); G89.29 Other chronic pain
CPT/HCPCS: 73200

== ENCOUNTER 2024-03-21 10:09 | Outpatient (CLI) | payer MEDICARE, OTHER, SELFPAY ==
[2024-03-21 10:31] LABS: Basophils Absolute Auto 0.1 K/mm3 (0.0-0.1); Basophils Percent Auto 0.6 % (0.2-1.2); Eosinophils Absolute Auto 0.4 K/mm3 (0-0.3); Eosinophils Percent Auto 4.9 % (0-4.4); Hematocrit 40.7 % (37.0-47.0); Hemoglobin 13.1 g/dL (12.0-15.0); Immature Granulocyte Absolute 0.08 K/mm3 (0.00-0.031); Immature Granulocyte Percent A 0.9 % (0-0.5); Lymphocytes Absolute Auto 1.84 K/mm3 (0.9-3.2); Lymphocytes Percent Auto 20.9 % (18.3-44.2); Mean Corpuscular HGB Conc 32.2 g/dl (32-36); Mean Corpuscular Hemoglobin 30.3 pg (26-34); Monocytes Absolute Auto 0.5 K/mm3 (0.1-0.6); Monocytes Percent Auto 6.1 % (2.6-8.5); Neutrophils Absolute Auto 5.9 K/mm3 (1.3-6.7); Neutrophils Percent Auto 66.6 % (45.5-73.1); Platelet Count Result 308 k/mm3 (150-375); Red Blood Count 4.33 M/mm3 (4.2-5.4); Red Cell Distribution Width 13.7 % (11.5-14.5); White Blood Count 8.8 K/mm3 (4.5-10.0)
[2024-03-21 13:30] LABS: Iron 81 ug/dL (37-170)
[2024-03-21 13:36] LABS: Anion Gap 7 mmol/L (4-12); Blood Urea Nitrogen 11 mg/dL (7-17); Carbon Dioxide 29 mmol/L (22-30); Chloride 102 mmol/L (98-107); Estimated Glomerular Filt Rate > 60; Glucose 103 mg/dL (65-110); Potassium 3.8 mmol/L (3.4-5.0); Sodium 138 mmol/L (137-145)
[2024-03-21 13:40] LABS: Percent Iron Saturation 26 % (20-50)
[2024-03-21 14:46] LABS: Folic Acid 7.2 ng/mL (2.76->20)
== END 2024-03-21 10:10 | disposition home or self-care (01) ==
LOC: ANHLAB 10:12
PROVIDERS: PCP Student in an Organized Health Care Education/Training Program; Visit Provider Internal Medicine Hematology & Oncology
DX: D64.9 Anemia, unspecified (principal)
CPT/HCPCS: 36415; 80048; 82607; 82728; 82746; 83540; 83550; 85025

== ENCOUNTER 2024-05-07 14:32 | Outpatient (CLI) | payer MEDICARE, OTHER, SELFPAY ==
--- NOTE | ~2024-05-07 | XR_ITS ---
[id number] 06/30/11 10:09:00 [id number] ([facility]) : SHOULDER ARTHROGRAM RIGHT 06/30/11 10:09:00 INDICATION: Right shoulder pain. TECHNIQUE: A timeout was performed to verify the patient's name, date of and procedure to be pe rformed. The procedure including the risk and benefits were discussed to the patient. Risk discusse d included bleeding and infection. The patient understood the risk and agreed to proceed. The skin overlying the right glenohumeral joint was prepped and draped in the usual sterile fashion. Anesthet ic was administered with 1% lidocaine subcutaneously. A20 2G needle was advanced under fluoroscopic guidance into the joint. Subsequently, injectate was instilled into the right glenohumeral joint spa ce (which was made up of 4 cc of Omnipaque, and 10 cc of 1% lidocaine and 2 cc of saline). The needle was removed and the entry site was cleaned and dressed. There were no immediate complications. FINDINGS: Real-time fluoroscopy demonstrates the needle and contrast in the right glenohumeral joint. IMPRESSION: 1: Successful right glenohumeral joint injection of contrast for subsequent CT arthrography, as berta ross above. Reviewed, dictated and finalized at location A. INIST SET UP IMPRESSION: 1: Successful right glenohumeral joint injection of contrast for subsequent CT arthrography, as detailed above.
--- NOTE | ~2024-05-07 | CT_ITS ---
EXAMINATION: CT shoulder RT w con DATE: 05/07/2024 15:57 INDICATION: Unspecified rotator cuff tear or rupture. TECHNIQUE: Computed tomography (CT) of the right shoulder was performed without intravenous contrast after intra-articular injection of contrast (CT arthrogram). Automated exposure control and iterative reconstruction technique were employed. The dose-length product was 447.33 mGy-cm. COMPARISON: Right shoulder CT 03/18/2024 FINDINGS: There is superior subluxation of humeral head with narrowing of the subacromial space. No f racture. There is moderate osteoarthritis of glenohumeral joint and severe osteoarthritis of acromioc lavicular joint. There is contrast in the glenohumeral joint and subacromial/subdeltoid bursa. There is a full-thickness tear of supraspinatus and infraspinatus tendons measuring 3.9 cm anterior to post erior by 5.0 cm proximal to distal. Biceps tendon is in bicipital groove. There is a 2 mm loose body in glenohumeral joint. IMPRESSION: 1. Massive full-thickness rotator cuff tear. 2. Polyarticular osteoarthritis. Reviewed, dictated and finalized at location A. 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
== END 2024-05-07 14:33 | disposition home or self-care (01) ==
LOC: ANHIMG 14:36
PROVIDERS: PCP Student in an Organized Health Care Education/Training Program; Visit Provider Orthopaedic Surgery
DX: M75.101 Unspecified rotator cuff tear or rupture of right shoulder, not specified as traumatic (principal)
CPT/HCPCS: 23350; 73201; 77002

== ENCOUNTER 2024-08-15 10:00 | Outpatient (RCR) | payer MEDICARE, OTHER, SELFPAY ==
--- NOTE | 2024-07-10 13:57 | OPREHPOC ---
Outpatient Therapy Plan of Care This is a Multidisciplinary Plan of Care that may contain components documented by all disciplines (PT, OT, and ST.) PT Problem 1 PT Problem #1 Knowledge Deficit PT Goal 1 Goal / Goal Update 1. Patient will perform independent HEP Target Visit 3 PT Problem 2 PT Problem #2 Impaired Functional ADLs PT Goal 1 Goal / Goal Update 1. Patient will report no fecal incontinence for at least 1 month 2. Patient will report urinary incontinence no more than 1 time per 2 weeks Target Visit 5 PT Problem 3 PT Problem #3 Impaired Strength PT Goal 1 Goal / Goal Update 1. Pelvic floor strength to 4/5 to reduce incontinence 2. Pelvic floor endurance to 10 seconds to reduce incontinence Target Visit 5
--- NOTE | 2024-07-10 13:57 | PTOPEVAL1 ---
Assessment and note entered by Reyna Mart DPT Evaluation Information Assessment Status Evaluation Diagnosis r15.9 ICD-10 Condition Codes (PT) Weakness R53.1,Stress incontinence N39.3 Subjective Information Pt reports urinary and fecal incontinence. Relates the onset to a hiatal hernia repair last year. Wears adult diapers. Does have awareness of her incontinence but very limited control over the fecal incontinence. She reports this causes difficulty going out in the community. Voids 3-4 times a day and 1 time at night. Denies pain with urination. Can hold urge up to 15 minutes. Reports her urinary incontinence has only been happening at night and has to change clothes due to it. Fecal incontinence 2 times a week. Not able to correlate with diet. BM 3-4 times a week. No pain. Denies history of pelvic pain. Pt has been 2 times, 2 vaginal deliveries. Reports no tearing. No WET WASH ASSEMBLER or b/b history. Diet: drinks coffee 1-2 12 ounce cups a day, 1 can of diet soda, water. Normally no milk, juice, or alcohol. States she does eat 3 meals a day and thinks she has a fairly well rounded diet. Patient goal: control my bowel and bladder better Returns to MD in a few days. Reported Pain Level Pain Score 0: Self Report Assessment PT Clinical Summary The patient is presenting to skilled therapy with a history of fecal and urinary incontinence since 2023. She presents with decreased pelvic floor strength and endurance as well as decreased hip and abdominal strength which are contributing to her frequent incontinence. She will highly benefit from skilled therapy to address impairments to improve strength and reduce incontinence in order to fully function. Plan of Care Interventions Manual Therapy,Neuro Re-education,Patient/ Caregiver Education,Therapeutic Activities, Therapeutic Exercise PT Services Indicated Yes Treatment Frequency and 1 time a week for 5 visits Duration These treatments will address the objective and functional deficits as defined above. The patient will be advanced safely and appropriately in order for the patient to progress towards his/her prior level of function. Additional exercises will be introduced and as well as a comprehensive home exercise program upon discharge, if needed, ?to ensure carryover of functional gains achieved in the clinic. This treatment plan has been reviewed and agreement upon by the patient.
--- NOTE | 2024-08-08 14:09 | PCPTNOTE ---
Patient did not show up for appointment 08/08/24. Left voicemail for patient to reschedule.
--- NOTE | 2024-08-15 10:29 | OPREHPOC ---
Outpatient Therapy Plan of Care This is a Multidisciplinary Plan of Care that may contain components documented by all disciplines (PT, OT, and ST.) PT Problem 1 PT Problem #1 Knowledge Deficit PT Goal 1 Goal / Goal Update 1. Patient will perform independent HEP Target Visit 3 Progress Met PT Problem 2 PT Problem #2 Impaired Functional ADLs PT Goal 1 Goal / Goal Update 1. Patient will report no fecal incontinence for at least 1 month 2. Patient will report urinary incontinence no more than 1 time per 2 weeks Target Visit 5 Progress Partially Met PT Problem 3 PT Problem #3 Impaired Strength PT Goal 1 Goal / Goal Update 1. Pelvic floor strength to 4/5 to reduce incontinence 2. Pelvic floor endurance to 10 seconds to reduce incontinence Target Visit 5 Progress Not Met
--- NOTE | 2024-08-15 10:30 | PTOPDC ---
Assessment and note entered by Reyna Mart DPT Evaluation Information Assessment Status Discharge Diagnosis r15.9 ICD-10 Condition Codes (PT) Weakness R53.1,Stress incontinence N39.3 Subjective Information Pt reports fecal incontinence 1 time a week. Reports urinary incontinence is only happening upon waking and needing to void badly. Wearing pads still just in case. Reported Pain Level Pain Score 0: Self Report Assessment PT Clinical Summary The patient has made some progress in therapy and reports fecal incontinence now only 1 time a week and that her urinary incontinence is only happening upon waking up and walking to the bathroom. She does demonstrate improved abdominal strength and hip strength. The patient would like to discharge from therapy at this time. She has been instructed in final HEP and educated to follow up with PT and/or MD as needed. Plan of Care PT Services Indicated No
== END 2024-08-15 11:40 | disposition home or self-care (01) ==
LOC: ANHPT 10:00
PROVIDERS: PCP Student in an Organized Health Care Education/Training Program; Visit Provider Student in an Organized Health Care Education/Training Program
DX: R15.9 Full incontinence of feces (principal); R32 Unspecified urinary incontinence
CPT/HCPCS: 97110; 97112; 97161; 97530

== ENCOUNTER 2024-08-23 14:29 | Emergency (ER) | payer MEDICARE, OTHER, SELFPAY ==
--- NOTE | ~2024-08-23 | CT_ITS ---
CT brain wo con Ordering provider: Davin Chen MD History: 84 years Female with . sudden onset ams . Comparison: None. Technique: CT of the head without contrast. FINDINGS: BRAIN PARENCHYMA AND CSF SPACES: Mild leukoaraiosis and diffuse cortical atrophy. Mild atheromatous d isease. No midline shift, mass effect or hemorrhage. The brain parenchyma and CSF spaces are otherwi se normal. Partial Empty sella turcica. VISUALIZED PARANASAL SINUSES: Well aerated. MASTOIDS: Well aerated. BONES: The bones appear intact. SOFT TISSUES: Visualized nasopharynx is normal. Superficial soft tissues are normal. IMPRESSION: No acute intracranial findings. Reviewed, dictated and finalized at location A. RANCE EXAMINER
--- NOTE | 2024-08-23 14:30 | ECG_ITS ---
Test Date: 2024-08-23 15:13:40 Measurements Intervals [place] Rate: 71 P: 47 NC: 201 QRS: -12 QRSD: 103 T: 29 QT: 404 QTc: 440 Interpretive Statements SINUS RHYTHM LOW QRS VOLTAGE IN PRECORDIAL LEADS [QRS DEFLECTION < 1.0 mV IN CHEST LEADS] INCOMPLETE RIGHT BUNDLE BRANCH BLOCK [90+ ms QRS DURATION, TERMINAL R IN V1/V2, 40+ ms S IN I/aVL/V4/V5/V6] ABNORMAL ECG Compared to ECG 02/16/2024 22:24:55 Low QRS voltage now present Incomplete right bundle-branch block now present t Electronically Signed On 08-23-2024 16:08:18 PATIENT FINANCIAL COUNSELOR by Jony Davis M.D.
--- OUTSIDE RECORDS SUMMARY | 2024-08-23 14:31 | XMS_ITS | Referral Summary ---
Author Organization [facility] al Address [address] [place] [address] Care Team Providers Care Senior Supplier Quality Engineer Name Role Phone Walter Gordon DPT Unavailable [phone] Anton Rice DO Primary Care Provide r Encounters Date Type Department Care Team Description 06/09/2024 Telephone [facility] Floor [address] [place] [address] Nicko Osuna NP from Last 3 Months Allergies Active Allergy Reactions Criticality Noted Date Comments Esomeprazole Rash Medium 01/29/2020 Shellfish Containing Products Rash Medium Sulfa (Sulfonamide Antibiotics) Rash Medium 12/09/2011 Reaction: RASH, Medications famotidine (PEPCID) 40 mg tablet Take 1 tablet (40 mg total) by mouth 2 (two) times a day 180 tablet [address] (CYMBALTA) 30 mg capsuleIndications: Fibromyalgia,Neurop athic Pain,major depressive disorder Take 1 capsule (30 mg total) by mouth daily For total of 90mg daily 90 capsule [address] (CYMBALTA) 60 mg capsule Take 1 capsule (60 mg total) by mouth daily For total of 90mg daily 90 capsule 3 1 Active pramipexole (MIRAPEX) 1 mg tablet TAKE 1 TO 2 TABLETS BY MOUTH EVERY NIGHT AT BEDTIME 180 tablet 2 Active pravastatin (PRAVACHOL) 20 mg tablet TAKE 1 TABLET BY MOUTH EVERY NIGHT AT BEDTIME 90 tablet 2 Active mirabegron ER (MYRBETRIQ) 25 mg tablet extended release 24 hr Take 1 tablet (25 mg total) by mouth daily 2 Active pregabalin (LYRICA) 300 mg capsule Take 1 capsule (300 mg total) by mouth 2 (two) times a day 3 Active FeroSuL 325 mg (65 mg iron) tablet 3 Active traMADoL (ULTRAM) 50 mg tablet Take 0.5 tablets (25 mg total) by mouth every 6 (six) hours as needed for pain for up to 20 days 10 tablet 4 Active meloxicam (MOBIC) 7.5 mg tablet Take 1 tablet (7.5 mg total) by mouth daily Active amlodipine-valsarta n (EXFORGE) 10-320 mg per tablet Take 1 tablet by mouth daily Active donepeziL (ARICEPT) 5 mg tablet Take 1 tablet (5 mg total) by mouth nightly Active acetaminophen (TYLENOL) 325 mg tablet Take 2 tablets (650 mg total) by mouth every 6 (six) hours as needed for fever 4 Active ondansetron ODT (ZOFRAN-ODT) 4 mg disintegrating tablet Take 1 tablet (4 mg total) by mouth every 4 (four) hours as needed for nausea or vomiting 20 tablet 4 Active Active Problems Problem Noted Date Diagnosed Date Leukocytosis 02/17/2024 Esophageal dysmotility 02/17/2024 Presbycusis of both ears 02/17/2024 B12 deficiency 04/04/2022 Vitamin D deficiency 04/04/2022 Abnormal barium swallow 03/15/2022 Overview (06/06/2022): Added automatically from request for surgery [id number] Hiatal hernia 03/15/2022 Overview (02/17/2024): Incarcerated hiatal hernia. Symptomatic. Concern for strangulation with elevated and rising WBC. Has pain in Jun [address] chest and abdomen: Impression: 1. No acute abnormality identified within the abdomen. 2. Large hiatal hernia. No evidence of distinct volvulus or outlet obstruction. 3. Left renal cysts, the largest measuring 2.4 cm. These appear simple with no specific follow-up imaging recommended. 4. Posterior lumbar spine fusion and degenerative changes. Assessment & Plan (02/19/2024 10:41 AM CDT): 02/16 Large paraesophageal hernia, reduced and repaired with toupet fundoplication, no signs of ischemia - NPO - esophagram today - CLD to FLD once cleared by esophagram - IVF until tolerating a diet - DVT PPX: Heparin TID, SCDs - PT/ OT to eval and treat Iron deficiency anemia 01/13/2022 Assessment & Plan (02/17/2024 7:57 PM CDT): Takes iron at home. Hgb 16.5 on admission - hold home iron - continue to monitor Other fatigue 11/14/2021 Other specified anemias 11/14/2021 Memory loss 10/25/2021 Overview (12/06/2021): Last Assessment & Plan: Seems mild but is worried, refer to memory unit Assessment & Plan (06/16/2021 2:41 PM SHIP'S OFFICER): Seems mild but is worried, refer to memory unit Displacement of lumbar intervertebral disc 04/07 Chest pain on breathing 04/21/2020 Overview (04/21/2020): Sounds more MSK in origin psbl shoulder derangement. 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 Lumbar spine MRI LOCATED WITHIN [facility] 09/01/20 - displaced lumbar disc - L1-2 disc protrusion with superior/inferior extrusion eccentric to right contributing to right lateral recess and severe canal narrowing; mild disc bulge L3-3, L5-S1 - cont duloxetine DR 90mg every day. SER - Inc meloxicam 15 every day, Lyrica 150mg bid, tramadol 50-100mg tid prn for pain. - If no improvement, consider prednisone taper given her new radicular pain - cont f/u with pain management - Rec aquatic exercise, chair exercise BRBPR (bright red blood per rectum) 10/02/2018 Assessment & Plan (10/02/2018 2:06 PM CDT): We will check the CBC, will stop the eliquis Leg pain, inferior, left 08/07/2018 Overview (08/07/2018): There is evidence that likely is a superficial varicose vein but cannot r/o DVT Assessment & Plan (08/07/2018 9:55 AM SHIP'S OFFICER): Send for LE doppler today Sleep disorder 08/05/2018 Bladder retention of urine 05/30/2018 Overview (05/30/2018): Of course given the back the spectre of FREDDY is always out there so we will MRI spine Assessment & Plan (05/30/2018 10:25 AM SHIP'S OFFICER): Mri, urine check Infection and inflammatory r eaction due to device, implant, and graft 01/22/2018 Chronic use of opiate drug for therapeutic purpo se 09/19/2017 Overview (11/16/2022): CHRONIC OPIOID THERAPY - 11/10/22 Current Analgesics: - tramadol 50 mg q.i.d. P.r.n. = max 300 mg/day, typically just takes 100 mg bedtime Oral morphine Equil: 30 mg/day max, but uses opioid sparingly Benzo: no Other : no Plan : Follow-up 3 months - continue as needed Urine drug screen 09/19/17 LOCATED WITHIN [facility] - negative all drugs screened (consistent with prescribed tramadol) Urine drug screen 11/01/18 [facility] - consistent with prescribed tramadol Urine drug screen LOCATED [facility] 09/01/19 - consistent with prescribed tramadol Urine drug screen LOCATED [facility] 03/05/20 - consistent with prescribed analgesics Urine drug screen LOCATED [facility] 01/21/21 - consistent with prescribed tramadol Urine drug screen LOCATED [facility] 11/10/22 - consistent with prescribed tramadol Postlaminectomy syndrome of lumbar region 2016 Assessment & Plan (06/16/2021 2:38 PM SHIP'S OFFICER): While I am certainly not a spine expert. The fusion in the lower three segments looks fused. The segments ABOVE this kelsey source of pain based on my review of the films. This is possibly somewhat differetn than just chronic post laminectomy pain and may respond to a slightly different approach. We will ask PMR to take a look and perhaps other shots or different modalities may help Assessment & Plan (06/04/2020 3:10 PM SHIP'S OFFICER): More injections planned Assessment & Plan (01/29/2020 9:44 AM CDT): She is on low dose opioid She is getting benefit from the Lyrica 150bid She has excellent f/u Dr Rod and injections planned. Today: I want to start (restart) cymbalta 30qd, I would like to hold on bumping it to 60 for now, I also want to start low dose meloxicam 7.5 (not on NSAID) Assessment & Plan (09/20/2018 12:12 PM CDT): Her lack of response to things raises the question about potential fibromyalgia- I will offer the naltrexone 2.5 daily Sacroiliitis 04/28/2017 Thyroid nodule 01/03/2017 Postoperative wound infection 09/25/2016 Overview (06/16/2021): Lifelong antibiotic Spondylosis of lumbar region without myelopathy or radiculopathy 01/01/2016 Assessment & Plan (06/04/2020 3:10 PM SHIP'S OFFICER): Plans a repeat MRI and more shots thre was a post op infection and has been on suppressive Abx and the plan was to continue indefinitely Spinal stenosis of cervical region 01/01/2016 Chronic pain 07/29/2015 Assessment & Plan (02/19/2024 10:43 AM CDT): On tramadol, pregabalin, and hydrocodone-acetaminophen 5-325 at home. - multimodal pain control via IV - transition to PO once tolerating a diet Assessment & Plan (12/25/2018 12:15 PM CDT): Up the Lyrica, [facility] Assessment & Plan (08/07/2018 9:59 AM SHIP'S OFFICER): In comprehensive pain program, we will give Atrial of the lyrica 75 bid Incontinence of feces with fecal urgency 015 Assessment & Plan (06/04/2020 3:11 PM SHIP'S OFFICER): I am increasingly suspicious of a pelvic floor muscular weakness process. I would like a referral to the urogynecologist Urinary incontinence 01/01/2014 Assessment & Plan (02/19/2024 10:42 AM CDT): History of urgency and nocturia. - consider restarting home mirabegron once on PO diet Urinary tract infection 12/12/2013 Sickness in family 10/24/2013 Gastroesophageal reflux disease without esophagi tis 07/17/2013 Overview (01/29/2020): Based on symptoms and lack of warning sx we will launch a THERAPEUTIC TRIAL of PPI x 3mo Allergic reaction to the nexium Assessment & Plan (02/19/2024 10:42 AM CDT): Likely iso hiatal hernia. On famotidine and omeprazole at home. - s/p HH repair, NPO - restart meds once tolerating a PO diet Assessment & Plan (01/29/2020 9:41 AM CDT): Restart famotidine 40 Assessment & Plan (12/26/2017 12:17 PM CDT): Initiate ppi Increase CaCo3 and D Overactive bladder 07/17/2013 Obstructive sleep apnea syndrome 07/17/2013 Hyperlipidemia 04/19/2011 Assessment & Plan (02/17/2024 7:54 PM CDT): Holding home pravastatin Assessment & Plan (03/27/2018 1:52 PM CDT): Lipid abnormalities are improving with treatment. Pharmacotherapy as ordered. Lipids will be reassessed in 6 months. Hypertension 04/19/2011 Assessment & Plan (02/17/2024 7:55 PM CDT): Holding home valsartan-hydrochlorothiazide. - PRN labetalol 10mg for SBP > 180, HR > 80 Assessment & Plan (03/27/2018 1:52 PM CDT): Hypertension is improving with treatment. Continue current treatment regimen. Dietary sodium restriction. Weight loss. Regular aerobic exercise. Continue current medications. Blood pressure will be reassessed in 3 months. Psoriasis 04/19/2011 Restless leg syndrome 04/19/2011 Assessment & Plan (02/17/2024 8:00 PM CDT): Holding home pramipexole Scalp psoriasis 04/19/2011 Lumbago 10/21/2010 Overview (03/27/2018): Still in pain Assessment & Plan (05/03/2021 10:03 PM SHIP'S OFFICER): Discussed approach to chronic low back pain. Lumbar spine MRI LOCATED [facility] 09/01/20 - displaced lumbar disc - L1-2 disc protrusion with superior/inferior extrusion eccentric to right contributing to right lateral recess and severe canal narrowing; mild disc bulge L3-3, L5-S1 - Rec inc duloxetine DR 90mg every day. SER - Cont meloxicam 7.5 every day, Lyrica 150mg bid, tramadol 50-100mg tid prn for pain. - cont f/u with pain management - Rec aquatic exercise. Assessment & Plan (03/27/2018 1:51 PM CDT): Discussed at length Is now a year out after major surgery Is not on narcotics at all and that will not help We are referrng to painmanagement Resolved Problems Problem Noted Date Diagnosed Date Resolved Date Pulmonary embolism 11/06/2016 9 Thyroid disorder 09/18/2014 06/16/2021 Vaginal atrophy 06/25/2014 06/16/2021 Weight gain 04/19/2011 06/16/2021 Immunizations Immunization Administration Dates Next Due Influenza, Quadrivalent, Hig h Dose, Preservative Free, Intrr 03/08/2022,03/11/2021,02/24/2020,02/25 Influenza, Trivalent, High D ose, Split, Preservative Free, Intramuscular 03/14/2019,03/14/2019,02/25/2018,02/25,02/12/2017,03/08/2016,02/24/2015 ,03/02/2014,03/02/2014 Influenza, Trivalent, IM (MDV) 03/08/2016 Influenza, Trivalent, Preser vative Free, Intramuscular 03/18/2017 Influenza, Unspecified 03/14/2019,2017,03/18/2017,02/12,04/18/2016,03/08/2016,02/24/2015 ,03/02/2014 Moderna SARS-CoV-2 Monovalen t Vaccination (12+ YRS) 04/24/2021 Pneumococcal Conjugate PCV 13 04/09/2019, 019,02/24/2015 Pneumococcal Polysaccharide PPV23 12/05/2010 Tdap 04/09/2019,04/09/2019 Social History Tobacco Use Types Packs/Day Years Used Date Smoking Tobacco: Former Cigarettes 1 4 1 957 - 1961 Smokeless Tobacco: Never Tobacco Cessation:Counseling Given: Not Answered Alcohol Use Standard Drinks/Week Comments Yes 0 (1 standard drink = 0.6 oz pur e alcohol) social- very rarely AUDIT-C Answer Date Recorded Q1: How often do you have a drink containing alc ohol? Monthly or less 02/17/2024 Q2: How many drinks containi ng alcohol do you have on a typical day when you are drinking? 1 or 2 02/17/2024 Q3: How often do you have si x or more drinks on one occasion? Never 02/17/2024 PHQ-2 Answer Date Recorded PHQ-2 Total Score (If total score is 3 or more points, staff should administer the PHQ-9) 0 06/16/2021 Personal Safety Answer Date Recorded Have you ever been in or are you currently in a harmful physical or emotional relationship or is someone making you feel afraid or unsafe? Denies 02/17/2024 Comments No Sex and Gender Information Value Date Recorded Sex Assigned at Not on file Legal Sex Female 1:06 AM SHIP'S OFFICER Gender Identity Not on file Sexual Orientation Not on file Occupation Industry Job Start Date Job End Date [employer] Not on file Not on file Not on file Last Filed Vital Signs Vital Sign Reading Time Taken Comments Blood Pressure 142/84 03/10/2024 2:10 PM CDT Pulse 98 03/10/2024 2:10 PM CDT Temperature 36.7 C (98.1 F) 03/10/2024 2:10 PM CDT Respiratory Rate 24 03/10/2024 2:10 PM CDT Oxygen Saturation 90% 03/10/2024 2:10 PM CDT Inhaled Oxygen Concentration - - Weight 89.4 kg (197 lb 3.2 oz) 03/10/2024 2:10 P M CDT Height 157.5 cm (5' 2 ) 02/17/2024 9:45 AM CDT Body Mass Index 36.07 02/17/2024 9:45 AM CDT Plan of Treatment Not on file Goals Goal Patient Goal Type Associated Problems Recent Progress Patient-Stated? Author CCM Chronic Pain Care Plan Chronic Care Management No change(03/07 3:55 PM CDT) No Francheska Law RN Note: Problem: Chronic Pain Goals: 1. Minimize further functional decline 2. Maximize quality of life 3. Control pain Strategies: - Activity/exercise program recommendation - Conservative stepwise pain medicine strategy with multi-disciplinary approach - Recommend healthy lifestyle strategies and compensatory methods as needed Reduce the likelihood of falling Lifestyle Worsening( 1:22 PM SHIP'S OFFICER) Malorie Prince RN Note: Below are four things you can do to prevent falls: 1. Begin an exercise program to improve your leg strength & balance 2. Ask your doctor or pharmacist to review your medicines 3. Get annual eye check-ups & update your eyeglasses 4. Make your home safer by: Removing clutter & tripping hazards Putting railings on all stairs & adding grab bars in the bathroom Having good lighting, especially on stairs Contact your local community or [facility] for information on exercise, fall prevention programs, or options for improving home safety. Medical Devices Implanted Type Area Form Tamper Device Identifier Shelf Expiration Date Model / Serial / Lot Screws And Rods N/A: Back Bilateral Knee Replacement Bilateral : Knee Explanted Type Area Form Tamper Device Identifier Shelf Expiration Date Model / Serial / Lot [employer] 3086 Octrode 60cm Trial Lead Kit Neurostimulator Sterile Latex Free - [id number] Implanted:Qty: 1 on 05/12/2019 by Walter Rod MD at [facility] Explanted:05/20/2019 by Jony Lacey MD (Quantity not on file) [employer] 3086 / / [employer] 3086 Octrode 60cm Trial Lead Kit Neurostimulator Sterile Latex Free - [id number] Implanted:Qty: 1 on 05/12/2019 by Walter Rod MD at [facility] Explanted:05/20/2019 by Jony Lacey MD (Quantity not on file) [employer] 3086 / / Insurance MEDICARE [place] [id number] H [employer] W [employer] SUPPLEMENT MEDICARE COMMERCIAL GENERIC [employer] CHOICE MEDICARE PPO MEDICARE [employer] OFFICE MEDICARE COMMERCIAL GENERIC MEDICARE [place] [address] [employer] [facility] [facility] SUPPLEMENT Advance Directives For more information, please contact: [phone] * Full Code (Latest Code Status on File) Date Activated Date Inactivated Comments 02/17/2024 10:46 AM 02/20/2024 8:24 PM Care Teams Senior Supplier Quality Engineer Relationship Specialty Start Date End Date Anton Rice DO [address] [place] [address] [id number] PCP - General Family Medicine 12/27/21 Walter Gordon DPT [id number] [place] [address] [id number] [place] [id number] Physical Therapist Physical Therapy 01/16/20
--- OUTSIDE RECORDS SUMMARY | 2024-08-23 14:32 | XMS_ITS | Clinical Summary ---
Author Organization [facility] Address [address] [place] [address] Care Team Providers Care Product Specialist Name Role Phone Walter Gordon DPT Unavailable [phone] Anton Rice DO Primary Care Provide r Allergies Active Allergy Reactions Criticality Noted Date Comments Esomeprazole Rash Medium 01/29/2020 Shellfish Containing Products Rash Medium Sulfa (Sulfonamide Antibiotics) Rash Medium 09/2011 Reaction: RASH, Medications famotidine (PEPCID) 40 mg [...] (06/06/2022): Added automatically from request for surgery [id number] Hiatal hernia 03/15/2022 Overview (02/17/2024): Incarcerated hiatal [...] unit Assessment & Plan (06/16/2021 2:41 PM SERVICE LINE LAYER): Seems mild but is worried, refer to memory unit Displacement of lumbar intervertebral disc 04/07 Chest pain on breathing 04/21/2020 Overview (04/21/2020): Sounds more MSK in origin psbl shoulder derangement. Of course a breast or chest wall process to consider Assessment & Plan (04/21/2020 3:13 PM SERVICE LINE LAYER): CXR, breast US, shoulder US Major depressive disorder with single episode Assessment & Plan (04/21/2020 3:18 PM SERVICE LINE LAYER): We reviewed and completed PHQ9 Start cymbalta 30 and this is also to help the chronic pain Spinal stenosis of lumbar re gion with neurogenic claudication 02/07/2020 Assessment & Plan (05/31/2021 10:13 PM SERVICE LINE LAYER): Discussed approach to chronic low back pain. Lumbar spine MRI [facility] 09/01/20 - displaced lumbar disc - L1-2 [...] DVT Assessment & Plan (08/07/2018 9:55 AM SERVICE LINE LAYER): Send for LE doppler today Sleep disorder 08/05/2018 Bladder retention of urine 05/30/2018 Overview (05/30/2018): Of course given the back the spectre of FREDDY is always out there so we will MRI spine Assessment & Plan (05/30/2018 10:25 AM SERVICE LINE LAYER): Mri, urine check Infection and inflammatory r [...] continue as needed Urine drug screen 09/19/17 [facility] - negative all drugs screened (consistent with prescribed tramadol) Urine drug screen 11/01/18 [facility] - consistent with prescribed tramadol Urine drug screen [facility] 09/01/19 - consistent with prescribed tramadol Urine drug screen [facility] 03/05/20 - consistent with prescribed analgesics Urine drug screen [facility] 01/21/21 - consistent with prescribed tramadol Urine drug screen [facility] 11/10/22 - consistent with prescribed tramadol Postlaminectomy syndrome of lumbar region 2016 Assessment & Plan (06/16/2021 2:38 PM SERVICE LINE LAYER): While I am certainly not a spine [...] help Assessment & Plan (06/04/2020 3:10 PM SERVICE LINE LAYER): More injections planned Assessment & Plan (01/29/2020 9:44 AM CDT): She is on low dose opioid She is getting benefit from the Lyrica 150bid She has excellent f/u Dr Viola and injections planned. Today: I want to [...] 01/01/2016 Assessment & Plan (06/04/2020 3:10 PM SERVICE LINE LAYER): Plans a repeat MRI and more shots [...] 12:15 PM CDT): Up the Lyrica, consider Thiells eval Assessment & Plan (08/07/2018 9:59 AM SERVICE LINE LAYER): In comprehensive pain program, we will give Atrial of the lyrica 75 bid Incontinence of feces with fecal urgency 015 Assessment & Plan (06/04/2020 3:11 PM SERVICE LINE LAYER): I am increasingly suspicious of a pelvic [...] pain Assessment & Plan (05/03/2021 10:03 PM SERVICE LINE LAYER): Discussed approach to chronic low back pain. Lumbar spine MRI [facility] 09/01/20 - displaced lumbar disc - L1-2 [...] atrophy 06/25/2014 06/16/2021 Weight gain 04/19/2011 06/16/2021 Encounters Date Type Department Care Team Description 06/09/2024 Telephone [facility] Surgery [facility] Floor [address] [place] [address] Nicko Osuna, ALEC from Last 3 Months Immunizations Immunization Administration Dates Next Due Influenza, Quadrivalent, Hig h Dose, Preservative Free, Intrr 03/08/2022,03/11/2021,02/24/2020,02/25 Influenza, Trivalent, High D ose, Split, Preservative Free, Intramuscular 03/14/2019,03/14/2019,02/25/2018,02/25,02/12/2017,03/08/2016,02/24/2015 ,03/02/2014,03/02/2014 Influenza, Trivalent, IM (MDV) 03/08/2016 Influenza, Trivalent, Preser vative Free, Intramuscular 03/18/2017 Influenza, Unspecified 03/14/2019,2017,03/18/2017,02/12,04/18/2016,03/08/2016,02/24/2015 ,03/02/2014 Moderna SARS-CoV-2 Monovalen t Vaccination (12+ YRS) 04/24/2021 Pneumococcal Conjugate PCV 13 04/09/2019, 019,02/24/2015 Pneumococcal Polysaccharide PPV23 12/05/2010 Tdap 04/09/2019,04/09/2019 Surgical History Surgery Date Site/Laterality Comments BREAST LUMPECTOMY Breast Surgery Lumpectomy - 1989 (Added by TW Conv) GALLBLADDER SURGERY Cholecystotomy - 1994 (Added by TW Conv) APPENDECTOMY Appendectomy - 1998 (Added by TW Conv) [place] ARTHROPLASTY KNEE TIBIAL PLATEAU Knee Replacement - Jun (Added by TW Conv) TOTAL ABDOMINAL HYSTERECTOMY W/ BILATERAL SALPINGOOPHORECTOMY Total Abdominal Hysterectomy With Bilateral Salpingo-Oophorectomy - (Added by TW Conv) [place] INJ LUMBAR/SACRAL,W/WO CNTRST Corticosteroid Injection Interlaminar Approach Lumbar - (Added by TW Conv) [place] INJ LUMBAR/SACRAL,W/WO CNTRST Corticosteroid Injection Interlaminar Approach Lumbar - (Added by TW Conv) [place] INJ CERV/THORAC,W/WO CNTRST Corticosteroid Injection Interlaminar Approach Cervical - (Added by TW Conv) [place] INJ LUMBAR/SACRAL,W/WO CNTRST Corticosteroid Injection Interlaminar Approach Lumbar - (Added by TW Conv) [place] TONSILLECTOMY PRIMARY/SEC ONDARY <AGE 12 Tonsillectomy - (Added by TW Conv) NERVE BLOCK Nerve Block - B/L SI (Added by TW Conv) NERVE BLOCK Nerve Block Paravertebral Facet Joint - (Added by TW Conv) KNEE SURGERY BACK SURGERY CATARACT EXTRACTION, BILATERAL Medical History Medical History Date Comments Closed fracture of phalanx o r phalanges of hand Fracture Of The Finger Joint (S) - 1997 (Added by TW Conv) Personal history of healed t raumatic fracture History of fracture of arm - 1997 (Added by TW Conv) Personal history of healed t raumatic fracture History of fracture of rib - 1997 (Added by TW Conv) Aftercare following joint re placement surgery Aftercare following joint re placement - (Added by TW Conv) Personal history of other me ntal and behavioral disorders History of anxiety - (Added by TW Conv) Incomplete uterovaginal prolapse Uterovaginal prolapse, incomplete - (Added by TW Conv) Retention of urine Incomplete bl adder emptying - (Added by TW Conv) Cystocele, unspecified (CODE) Cy stocele - (Added by TW Conv) Rectocele Rectocele - (Add ed by TW Conv) Crossing vessel and strictur e of ureter without hydronephrosis Ureteral obstruction - (Adde d by TW Conv) Pain in hip Joint pain, hip - (Added by TW Conv) Nocturia Nocturia - (Adde d by TW Conv) Personal history of other sp ecified conditions History of fatigue - (Added by TW Conv) Pain in knee Joint pain, knee - (Added by TW Conv) Nontoxic multinodular goiter Non toxic multinodular goiter - (Added by TW Conv) Somnolence Uncontrolled day time somnolence - (Added by TW Conv) Personal history of other me ntal and behavioral disorders History of depression - (Add ed by TW Conv) Shortness of breath SOBOE (short ness of breath on exertion) - (Added by TW Conv) Localized edema Edema extremitie s - (Added by TW Conv) Personal history of other di seases of urinary system History of hematuria - (Adde d by TW Conv) Personal history of other sp ecified conditions History of telogen effluvium - (Added by TW Conv) Hydronephrosis Hydronephrosis, left - (Added by TW Conv) Urgency of urination Urinary urg ency - (Added by TW Conv) Encounter for general adult medical examination without abnormal findings Medicare annual wellness visit, subsequent - (Added by TW Conv) Acute upper respiratory infection URI, acute - (Added by TW Conv) Cough Cough - (Added b y TW Conv) Sciatica of left side Sciatica, left side - (Added by TW Conv) Spinal stenosis of lumbar re gion without neurogenic claudication Lumbar canal stenosis - (Add ed by TW Conv) Cough Recurrent produc tive cough - (Added by TW Conv) Radiculopathy of cervical region Cervical radiculopathy, acute - (Added by TW Conv) Pain of left leg Leg pain, poste rior, left - (Added by TW Conv) Personal history of other di seases of the musculoskeletal system and connective tissue History of spinal stenosis - (Added by TW Conv) Spondylosis of cervical reyes on without myelopathy or radiculopathy Spondylosis of cervical nilsa int without myelopathy - (Added by TW Conv) Dorsalgia Mid back pain on left side - (Added by TW Conv) Other intervertebral disc di splacement, lumbar region Displacement of lumbar inter vertebral disc without myelopathy - (Added by TW Conv) Personal history of other di seases of the digestive system History of hiatal hernia - ( Added by TW Conv) GERD (gastroesophageal reflux disease) Anxiety Depression Hypertension Obesity Hiatal hernia Back pain Low back pain Blood clot in vein Chronic pain disorder Right shoulder pain Back pain Hip pain Fibromyalgia, primary Anemia Family History Medical History Relation Name Comments Alcohol abuse Father Family history of alcoholism - (Added by TW Conv) Heart disease Other 1 Heart Disease - sister at age 79 (Added by TW Conv) Hypertension Other 2 Hypertension - sister at age 60 (Added by TW Conv) Cancer Other 3 Cancer - sister at age 40 (Added by TW Conv) Cancer Sister 1 Diabetes type II Sister 1 Family hist ory of type 2 diabetes mellitus - (Added by TW Conv) Hyperlipidemia Sister 1 Alzheimer's disease Sister 2 Family h istory of Alzheimer's disease - (Added by TW Conv) Heart disease Son Relation Name Status Comments Father Other 1 Other 2 Other 3 Sister 1 Sister 2 Son Social History Tobacco Use Types Packs/Day Years Used Date Smoking Tobacco: Former Cigarettes 1 4 1 957 - 1960 Smokeless Tobacco: Never Tobacco Cessation:Counseling Given: Not [...] on file Legal Sex Female 1:06 AM SERVICE LINE LAYER Gender Identity Not on file Sexual Orientation Not on file Occupation Industry Job Start Date Job End Date [employer] Not on file Not on file Not on file Obstetrics History Last Filed Vital Signs Vital Sign Reading [...] 02/17/2024 9:45 AM CDT Plan of Treatment Health Maintenance Due Date Last Done Comments Hepatitis B Screening 1958 Depression Screening 06/16/2022 06/16/2021, 04/21/2020, 01/29/2020, Additional history exists Well Visit 65+ 06/16/2022 06/16/2021 Covid-19 Vaccine (2023-07 5 season) 2024 09/22/2021, 04/24/2021, 08/28/2020, Additional history exists Influenza Vaccine (#1) 2024 , 03/11/2021, 02/24/2020, Additional history exists Fall Risk Assessment 02/19/2025 02/20/2024, 06/16/2021, 01/29/2020, Additional history exists DTaP/Tdap/Td Vaccine (3 - Td or Tdap) 04/09/2029 04/09/2019, 04/09/2019 Pneumococcal vaccine 65+ Completed 019, 04/09/2019, 02/24/2015, Additional history exists Zoster Vaccine Completed 05/09/2023, 01/19/2023 Goals Goal Patient Goal Type Associated Problems [...] likelihood of falling Lifestyle Worsening( 1:22 PM SERVICE LINE LAYER) No Malorie Lopez, RN Note: Below are four things you [...] on stairs Contact your local community or senior center for information on exercise, fall prevention programs, or options for improving home safety. Medical Devices Implanted Type Area Antique Furniture Restorer Device Identifier Shelf Expiration Date Model / Serial / Lot Screws And Rods N/A: Back Bilateral Knee Replacement Bilateral : Knee Explanted Type Area Antique Furniture Restorer Device Identifier Shelf Expiration Date Model / Serial / Lot [employer] 3086 Octrode 60cm Trial Lead Kit Neurostimulator Sterile Latex Free - [id number] Implanted:Qty: 1 on 05/12/2019 by Walter Rod MD at [facility] Explanted:05/20/2019 by Jony Lacey MD (Quantity not on file) [employer] 3086 / / [employer] 3086 Octrode 60cm Trial Lead Kit Neurostimulator Sterile Latex Free - [id number] Implanted:Qty: 1 on 05/12/2019 by Walter Rod MD at [facility] Explanted:05/20/2019 by Jony Lacey MD (Quantity not on file) [employer] 3086 / / Insurance [place]IC[place] [id number] [facility] SUPPLEMENT MEDICARE COMMERCIAL GENERIC [employer] CHOICE MEDICARE PPO MEDICARE [employer] CLAIMS OFFICE MEDICARE COMMERCIAL GENERIC MEDICARE [place] [address] [facility] [employer] [facility] SUPPLEMENT Advance Directives For more information, please contact: [phone] * Full Code (Latest Code Status on File) Date Activated Date Inactivated Comments 02/17/2024 10:46 AM 02/20/2024 8:24 PM Care Teams Product Specialist Relationship Specialty Start Date End Date Anton Rice DO [address] [place] [id number] PCP - General Family Medicine 12/27/21 Walter Gordon DPT [id number] [place] [id number] Physical Therapist Physical Therapy 01/16/20
--- OUTSIDE RECORDS SUMMARY | 2024-08-23 14:32 | XMS_ITS | CONTINUITY OF CARE DOCUMENT ---
Author Name brianda lamar Address Unknown Organization [facility] Address [address] [place] [address] [address] [place] [address] Phone [phone] Care Team Providers Care Air Dispatcher Name Role Phone Baljinder ALVAREZ, Geoff Unavailable INSURANCE PROVIDERS Payer name Policy type / Coverage type Yane red republican ID [employer] [id number] [place] Medicare [id number]
--- OUTSIDE RECORDS SUMMARY | 2024-08-23 14:32 | XMS_ITS | Referral Summary ---
Author Organization [facility] Address [address] [place] [address] Care Team Providers Care Vending Machine Mechanic Name Role Phone Unavailable Primary Care Provider Unavailabl e Source Comments [facility],non-owned Affiliates and Associated Physician Practices is amultiple site organization consisting of ambulatory clinics and hospital sitesin [place], [place], [place] and [place]. This disclosure is being madepursuant to the Care Everywhere program and may not contain all information available regarding this patient. Last updated 18.[facility] Allergies Active Allergy Reactions Criticality Noted Date Comments Shellfish Allergy Rash Medium 02/25/2018 Sulfa Drugs Rash Medium 02/25/2018 Medications * Be aware that medications may not be up to date on this document. Alwaysverify current medications with the patient. Medication Sig Dispensed Refills Start Date End Date Status traMADol (ULTRAM) 50 MG tablet Take 50 mg by mouth every 6 hours as needed for Pain Active pramipexole (MIRAPEX) 0.125 MG tablet Take 0.125 mg by mouth 3 times daily Active valsartan (DIOVAN) 40 MG tablet Take 40 mg by mouth once daily Active pravastatin (PRAVACHOL) 20 MG tablet Take 20 mg by mouth at bedtime Active esomeprazole (NEXIUM) 40 MG capsule Take 40 mg by mouth daily before breakfast Active bisacodyl EC (BISACODYL EC) 5 MG tablet Take 5 mg by mouth once as needed for Constipation Active ferrous sulfate 325 (65 FE) MG tablet Take 325 mg by mouth once daily Active cyanocobalamin (VITAMIN B-12) 1000 MCG tablet Take 1,000 mcg by mouth once daily Active Immunizations Name Administration Dates Next Due INFLUENZA VACCINE, HIGH-DOSE , QUADR. (FLUZONE HIGH-DOSE QUADRIVALENT; 65Y+), 0.7 ML (HD-IIV4) 02/25/2018 Social History Tobacco Use Types Packs/Day Years Used Date Smoking Tobacco: Former Cigarettes 0.5 5 0 06/18/1974 - 06/18/1979 Smokeless Tobacco: Never Alcohol Use Standard Drinks/Week Comments Not Currently 0 (1 standard drink = 0.6 oz pur e alcohol) AUDIT-C Answer Date Recorded Frequency of Alcohol Consumption Monthly or less 09/03/2019 Average Number of Drinks 1 or 2 020 Frequency of Binge Drinking Never 08/16 Sex and Gender Information Value Date Recorded Sex Assigned at Not on file Gender Identity Not on file Sexual Orientation Not on file Last Filed Vital Signs Vital Sign Reading Time Taken Comments Blood Pressure - - Pulse - - Temperature - - Respiratory Rate - - Oxygen Saturation - - Inhaled Oxygen Concentration - - Weight 90.3 kg (199 lb) 09/03/2019 6:51 AM CDT Height 160 cm (5' 3 ) 09/03/2019 6:51 AM CDT Body Mass Index 35.25 09/03/2019 6:51 AM CDT Plan of Treatment Not on file
--- OUTSIDE RECORDS SUMMARY | 2024-08-23 14:32 | XMS_ITS | Encounter Summary ---
Author Organization [facility] Address [address] [place] [address] Care Team Providers Care Edi Programmer Analyst Name Role Phone Walter Gordon DPT Unavailable [phone] Anton Rice DO Primary Care Provide r Encounter Details Date Type Department Care Team (Late st Contact Info) Description 03/09/2022 Telephone [facility] [address] [place], [place] [id number] Walter Rod MD [address] [facility] [phone] [place], [place] [id number] Social History Tobacco Use Types Packs/Day Years Used Date Smoking Tobacco: Former Cigarettes 1 4 1 957 - 1961 Smokeless Tobacco: Never Alcohol Use Standard Drinks/Week Comments Yes 0 (1 standard drink = 0.6 oz pur e alcohol) social- very rarely AUDIT-C Answer Date Recorded Q1: How often do you have a drink containing alc ohol? Monthly or less 03/07/2022 Q2: How many drinks containi ng alcohol do you have on a typical day when you are drinking? 1 or 2 03/07/2022 Q3: How often do you have si x or more drinks on one occasion? Never 03/07/2022 PHQ-2 Answer Date Recorded PHQ-2 Total Score (If total score is 3 or more points, staff should administer the PHQ-9) 0 06/16/2021 Comments No Sex and Gender Information Value Date Recorded Sex Assigned at Not on file Legal Sex Female 1:06 AM FISH BUTCHER Gender Identity Not on file Sexual Orientation Not on file Occupation Industry Job Start Date Job End Date [employer] Not on file Not on file Not on file documented as of this encounter Plan of Treatment Not on file documented as of this encounter Goals Goal Patient Goal Type Associated Problems Recent Progress Patient-Stated? Author CCM Chronic Pain Care Plan Chronic Care Management No change(03/07 3:55 PM CDT) No Francheska Law, RN Note: Problem: Chronic Pain Goals: 1. Minimize further functional decline 2. Maximize quality of life 3. Control pain Strategies: - Activity/exercise program recommendation - Conservative stepwise pain medicine strategy with multi-disciplinary approach - Recommend healthy lifestyle strategies and compensatory methods as needed Reduce the likelihood of falling Lifestyle Worsening( 1:22 PM FISH BUTCHER) No Malorie Lopez, RN Note: Below are [...] stairs Contact your local community or senior [place] for information on exercise, fall prevention programs, or options for improving home safety. documented as of this encounter Visit Diagnoses Not on filedocumented in this encounter Care Teams Edi Programmer Analyst Relationship Specialty Start Date End Date Anton Rice DO [address] [place] [id number] PCP - General Family Medicine 12/27/21 Walter Gordon DPT [address] [facility] [address] [place] [address] Physical Therapist Physical Therapy 01/16/20 documented as of this encounter
--- OUTSIDE RECORDS SUMMARY | 2024-08-23 14:32 | XMS_ITS | Clinical Summary ---
Author Organization [facility] Care Team Providers Care Access Tech Name Role Phone Unavailable Primary Care Provider Unavailabl e Social History Tobacco Use Types Packs/Day Years Used Date Smoking Tobacco: Never Assessed Comments Unknown Sex and Gender Information Value Date Recorded Sex Assigned at Not on file Legal Sex Female 12:03 AM CDT Gender Identity Not on file Sexual Orientation Not on file Plan of Treatment Health Maintenance Due Date Last Done Comments DEXA Bone Density 1940 Hepatitis C Virus (HCV) Screening 1940 Zoster Immunization (1 of 2) 1988 Respiratory Syncytial Virus (RSV) Immunization (Adult) (1 - 1-dose 75+ series) 2013 Pneumococcal Immunization (50+ years) (2 of 2 - PPSV23) 04/09/2020 04/09/2019 Influenza Immunization (#1) 02/17/202402/17, 02/25/2018, 03/02/2014 SARS-COV-2 Immunization ( season) 2024 09/22/2021, 04/24/2021, 08/28/2020, Additional history exists DTaP/Tdap/Td Immunization Discontinued 04/09/2019 Pneumococcal Immunization Combined Discontinued 04/09/2019 TdaP Immunization Completed 04/09/2019 Hepatitis B Immunization Aged Out No longer eligible based on patient's age to complete this topic Meningococcal Immunization (ACWY) Aged Out No longer eligible based on patient's age to complete this topic Rotavirus Immunization Aged Out No lo nger eligible based on patient's age to complete this topic
--- OUTSIDE RECORDS SUMMARY | 2024-08-23 14:32 | XMS_ITS | Encounter Summary ---
Author Organization [facility] Address [address] [place] [address] Phone Care Team Providers Care Crts Name Role Phone Kamron Kumari MD Primary Care Provider [phone] Walter Gordon DPT Unavailable [phone] Anton Rice DO Primary Care Provide r Encounter Details Date Type Department Care Team (Late st Contact Info) Description 02/18/2020 Orders Only [facility] [address] [place] [address] Scanning, Provider Social History Tobacco Use Types Packs/Day Years Used Date Smoking Tobacco: Former Cigarettes 1 4 1 957 1961 Smokeless Tobacco: Never Alcohol Use Standard Drinks/Week Comments Yes 0 (1 standard drink = 0.6 oz pur e alcohol) social- very rarely PHQ-2 Answer Date Recorded PHQ-2 Score 2 01/29/2020 Comments No Sex and Gender Information Value Date Recorded Sex Assigned at Not on file Legal Sex Female 1:06 AM GOVERNMENT AUDITOR Gender Identity Not on file Sexual Orientation Not on file Occupation Industry Job Start Date Job End Date [employer] Not on file Not on file Not on file documented as of this encounter Plan of Treatment Not on file documented as of this encounter Goals Goal Patient Goal Type Associated Problems Recent Progress Patient-Stated? Author CCM Chronic Pain Care Plan Chronic Care Management No change(03/07 3:55 PM CDT) Francheska Mariano, ADELAIDA Note: Problem: Chronic Pain Goals: 1. Minimize further functional decline 2. Maximize quality of life 3. Control pain Strategies: - Activity/exercise program recommendation - Conservative stepwise pain medicine strategy with multi-disciplinary approach - Recommend healthy lifestyle strategies and compensatory methods as needed Reduce the likelihood of falling Lifestyle Worsening( 1:22 PM GOVERNMENT AUDITOR) Malorie Prince, RN Note: Below are four things you [...] on stairs Contact your local community or [facility] for information on exercise, fall prevention programs, or options for improving home safety. documented as of this encounter Procedures Procedure Name Priority Date/Time Associated Diagnosis Comments SCAN - RADIOLOGY/IMAGING 02/18/2020 4:38 PM CDT documented in this encounter Results * SCAN - RADIOLOGY/IMAGING (02/18/2020 4:38 PM CDT) Anatomical Region Laterality Modality Other us Provider Scanning Final Result documented in this encounter Visit Diagnoses Not on filedocumented in this encounter Care Teams Crts Relationship Specialty Start Date End Date Kamron Kumari MD PCP - General 09/26/16 12/26/21 Anton Rice DO [address] [place] [id number] PCP - General Family Medicine 12/27/21 Walter Gordon DPT [address] [facility] [address] [place] [address] Physical Therapist Physical Therapy 01/16/20 documented as of this encounter
--- OUTSIDE RECORDS SUMMARY | 2024-08-23 14:32 | XMS_ITS | Patient Health Summary ---
Author Organization [facility] [employer] Address [address] [place] [address] Care Team Providers Care Water Filtration Technician Name Role Phone Unavailable Primary Care Provider Unavailabl e Note from Formerly named [facility],non-owned Affiliates and Associated Physician Practices is amultiple site organization consisting of ambulatory clinics and hospital sitesin [place], [place], [place] and [place]. This disclosure is being madepursuant to the Care Everywhere program and may not contain all information available regarding this patient. Last updated 18.[facility] Allergies * Shellfish Allergy(Rash) -Medium Criticality * Sulfa Drugs(Rash) -Medium Criticality Medications * Be aware that medications may not be up to date on this document. Alwaysverify current medications with the patient. * traMADol (ULTRAM) 50 MG tablet Take 50 mg by mouth every 6 hours as needed for Pain * pramipexole (MIRAPEX) 0.125 MG tablet Take 0.125 mg by mouth 3 times daily * valsartan (DIOVAN) 40 MG tablet Take 40 mg by mouth once daily * pravastatin (PRAVACHOL) 20 MG tablet Take 20 mg by mouth at bedtime * esomeprazole (NEXIUM) 40 MG capsule Take 40 mg by mouth daily before breakfast * bisacodyl EC (BISACODYL EC) 5 MG tablet Take 5 mg by mouth once as needed for Constipation * ferrous sulfate 325 (65 FE) MG tablet Take 325 mg by mouth once daily * cyanocobalamin (VITAMIN B-12) 1000 MCG tablet Take 1,000 mcg by mouth once daily Immunizations * INFLUENZA VACCINE, HIGH-DOSE, QUADR. (FLUZONE HIGH-DOSE QUADRIVALENT; 65Y+), 0.7 ML (HD-IIV4)(Given 02/25/2018) Social History Tobacco Use Types Packs/Day Years [...] Mass Index 35.25 09/03/2019 6:51 AM CDT Procedures * SD PASS INTESTINE BLEEDING TUBE(Performed 09/03/2019) Performed for Iron deficiency anemia, unspecified iron deficiency anemia type * MRI KNEE RIGHT WO CONTRAST(Performed 01/10/2012) Performed for Pain in joint, lower leg Results * MRI KNEE RIGHT WO CONT (01/10/2012 1:17 PM CDT) Anatomical Region Laterality Modality Lower Extremity Magnetic Resonan ce 01/10/2012 1:57 PM CDT Impressions 01/10/2012 3:37 PM CDT Bucket-handle tear of the medial meniscus with near-complete cartilaginous loss in the medial femorotibial joint space and bony contusions of the medial femoral condyle and medial tibial plateau. Narrative 01/10/2012 3:37 PM CDT MRI RIGHT KNEE WITHOUT CONTRAST INDICATION: Difficulty bearing weight, pain. TECHNIQUE: Standard MRI sequences of the knee were obtained without contrast. FINDINGS: Degenerative bony spurs are seen scattered about the knee joint. A large knee joint effusion is seen. There is near-complete cartilaginous loss in the medial femorotibial compartment. Additionally there is an absent bowtie sign and double PCL sign consistent with flipped meniscus and bucket-handle tear. Fluid fills the medial femorotibial joint space. Marrow edema is seen in the medial femoral condyle and medial tibial plateau. The ACL and PCL are intact. The extensor mechanism is intact. Soft tissue swelling is seen in the prepatellar subcutaneous tissue. The medial collateral and lateral collateral ligaments are intact. No patellar dislocation is seen. There is cartilaginous loss of the medial patellar facet. Procedure Note Damien River MD - 01/10/2012 MRI RIGHT KNEE WITHOUT CONTRAST INDICATION: Difficulty bearing weight, pain. TECHNIQUE: Standard MRI sequences of the knee were obtained without contrast. FINDINGS: Degenerative bony spurs are seen scattered about the knee joint. A large knee joint effusion is seen. There is near-complete cartilaginous loss in the medial femorotibial compartment. Additionally there is an absent bowtie sign and double PCL sign consistent with flipped meniscus and bucket-handle tear. Fluid fills the medial femorotibial joint space. Marrow edema is seen in the medial femoral condyle and medial tibial plateau. The ACL and PCL are intact. The extensor mechanism is intact. Soft tissue swelling is seen in the prepatellar subcutaneous tissue. The medial collateral and lateral collateral ligaments are intact. No patellar dislocation is seen. There is cartilaginous loss of the medial patellar facet. IMPRESSION Bucket-handle tear of the medial meniscus with near-complete cartilaginous loss in the medial femorotibial joint space and bony contusions of the medial femoral condyle and medial tibial plateau. Ivette Torres MD MR ORDERABLES
--- OUTSIDE RECORDS SUMMARY | 2024-08-23 14:32 | XMS_ITS | Encounter Summary ---
Author Organization [facility] Healthcare Address [address] [place] [address] Care Team Providers Care Aircraft Worker Name Role Phone Kamron Kumari MD Primary Care Provider [phone] Walter Gordon DPT Unavailable [phone] Anton Rice DO Primary Care Provide r Encounter Details Date Type Department Care Team (Late st Contact Info) Description 08/19/2021 Telephone [facility] [address] [place], [place] [id number] Walter Rod MD [address] [facility] [phone] [place], [place] [id number] Social History Tobacco Use Types Packs/Day Years Used Date Smoking Tobacco: Former Cigarettes 1 4 1 957 - 1961 Smokeless Tobacco: Never Alcohol Use Standard Drinks/Week Comments Yes 0 (1 standard drink = 0.6 oz pur e alcohol) social- very rarely AUDIT-C Answer Date Recorded Q1: How often do you have a drink containing alc ohol? Monthly or less 07/26/2021 Q2: How many drinks containi ng alcohol do you have on a typical day when you are drinking? 1 or 2 07/26/2021 Q3: How often do you have si x or more drinks on one occasion? 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 Author CCM Chronic Pain Care Plan Chronic Care Management No change(03/07 3:55 PM CDT) No Francheska Law, ADELAIDA Note: Problem: Chronic Pain Goals: 1. Minimize further functional decline 2. Maximize quality of life 3. Control pain Strategies: - Activity/exercise program recommendation - Conservative stepwise pain medicine strategy with multi-disciplinary approach - Recommend healthy lifestyle strategies and compensatory methods as needed Reduce the likelihood of falling Lifestyle Worsening( 1:22 PM SNATH HANDLE ASSEMBLER) No Malorie Lopez, ADELAIDA Note: Below are four things you can [...] on stairs Contact your local community or [facility] for information on exercise, fall prevention programs, or options for improving home safety. documented as of this encounter Visit Diagnoses Not on filedocumented in this encounter Care Teams Aircraft Worker Relationship Specialty Start Date End Date Kamron Kumari MD PCP - General 09/26/16 12/26/21 Anton Rice DO [address] [place] [id number] PCP - General Family Medicine 12/27/21 Walter Gordon DPT [address] [facility] [address] [place] [address] Physical Therapist Physical Therapy 01/16/20 documented as of this encounter
--- OUTSIDE RECORDS SUMMARY | 2024-08-23 14:32 | XMS_ITS | Clinical Summary ---
Author Organization [facility] Address [address] [place] [address] Care Team Providers Care Microsoft Dynamics Manager Architect Name Role Phone Unavailable Primary Care Provider Unavailabl e Source Comments [facility],non-owned Affiliates and Associated Physician Practices is amultiple site organization consisting of ambulatory clinics and hospital sitesin [place], [place], [place] and [place]. This disclosure is being madepursuant to the Care Everywhere program and may not contain all information available regarding this patient. Last updated 18.[facility] Allergies Active Allergy Reactions Criticality Noted Date [...] HIGH-DOSE QUADRIVALENT; 65Y+), 0.7 ML (HD-IIV4) 02/25/2018 Family History Medical History Relation Name Comments Cancer - Breast Sister Relation Name Status Comments Sister Social History Tobacco Use Types Packs/Day Years [...] 09/03/2019 6:51 AM CDT Plan of Treatment Health Maintenance Due Date Last Done Comments BONE DENSITY TESTING 1940 MEDICARE AWV 12 MONTHS 1940 DTAP/TDAP/TD VACCINES (1 - Tdap) 1957 PNEUMOCOCCAL VACCINE 50+ (1 of 1 - PCV) 1988 ZOSTER VACCINE (1 of 2) 1988 Respiratory Syncytial Virus (RSV) Vaccine Pt: or over 60 yrs (1 - 1-dose 75+ series) 2013 COVID-19 VACCINE ( - 2023-2 5 season) 2024 INFLUENZA VACCINE (#1) 2024 02/25/2018 DEPRESSION SCREENING 06/18/2024 HEPATITIS B VACCINE Aged Out No longe r eligible based on patient's age to complete this topic HIB VACCINE Aged Out No longer eligi ble based on patient's age to complete this topic HPV VACCINE Aged Out No longer eligi ble based on patient's age to complete this topic MENINGOCOCCAL (Group B) VACCINE Aged Out No longer eligible based on patient's age to complete this topic MENINGOCOCCAL VACCINE Aged Out No mildred radha eligible based on patient's age to complete this topic Monet Howard Personal/Family Self 1940 [facility] [address]
--- OUTSIDE RECORDS SUMMARY | 2024-08-23 14:32 | XMS_ITS | Clinical Summary ---
Author Organization [facility] Address [address] [place] [address] Care Team Providers Care Floral Designer Salesperson Name Role Phone Krystal Anton Laguerre DO Primary Care Provider + Allergies Active Allergy Reactions Criticality Noted Date Comments Esomeprazole Rash Medium 01/29/2020 Shellfish Containing Products Rash Medium 2021 Sulfa (Sulfonamide Antibiotics) Rash Medium 1209/2011 Reaction: RASH, Medications clobetasoL (TEMOVATE) 0.05 % Solution Apply to affected area 2 times daily. 02/17/2021 Active docusate sodium (COLACE) 100 mg capsule Take 100 mg by mouth 2 times daily. Active DULoxetine (CYMBALTA) 30 mg Capsule, Delayed Release(E.C.) TAKE ONE CAPSULE BY MOUTH DAILY WITH 60 MG 10/31/2021 Active DULoxetine (CYMBALTA) 60 mg Capsule, Delayed Release(E.C.) TAKE 1 CAPSULE BY MOUTH DAILY FOR TOTAL OF 90 MG DAILY 11/08/2021 Active famotidine (PEPCID) 40 mg tablet 10/10/2021 Active ferrous sulfate 324 mg (65 mg iron) Tablet, Delayed Release (E.C.) Take 65 mg by mouth. Active pramipexole (MIRAPEX) 1 mg Tablet 01/10/2022 Active pravastatin (PRAVACHOL) 20 mg tablet Take 20 mg by mouth daily at bedtime. 10/26/2021 Active pregabalin (LYRICA) 150 mg Capsule Take 150 mg by mouth 2 times daily. 01/02/2022 Active traMADoL (ULTRAM) 50 mg tablet 11/18/2021 Active valsartan-hydro CHLOROthiazide (DIOVAN HCT) 320-25 mg tablet Take 1 Tablet by mouth daily. 01/10/2022 Active Xarelto 10 mg Tablet 07/19/2022 Active predniSONE (DELTASONE) 20 mg tablet Take 20 mg by mouth. 09/11/2023 Active Active Problems Problem Noted Date Diagnosed Date Iron deficiency anemia 01/13/2022 Encounters Date Type Department Care Team Description 08/05/2024 External Device Data ST[facility] ABSTRACTION Provider, Abstract 07/10/2024 External Device Data [facility] ABSTRACTION Provider, Abstract 07/09/2024 External Device Data [facility] ABSTRACTION Provider, Abstract 07/08/2024 External Device Data [facility] ABSTRACTION Provider, Abstract from Last 3 Months Family History Medical History Relation Name Comments Cancer Sister 1 Relation Name Status Comments Brother Father Mother Sister 1 Sister 2 Social History Tobacco Use Types Packs/Day Years Used Date Smoking Tobacco: Never Tobacco Cessation:Counseling Given: Not Answered Alcohol Use Standard Drinks/Week Comments Yes 0 (1 standard drink = 0.6 oz pur e alcohol) Comments Unknown Sex and Gender Information Value Date Recorded Sex Assigned at Not on file Legal Sex Female 4:31 PM CDT Gender Identity Not on file Sexual Orientation Not on file Last Filed Vital Signs Vital Sign Reading Time Taken Comments Blood Pressure 147/90 03/25/2024 1:09 PM CDT Pulse 80 03/25/2024 1:09 PM CDT Temperature 36 C (96.8 F) 03/25/2024 1:09 PM CDT Respiratory Rate 16 03/25/2024 1:09 PM CDT Oxygen Saturation 95% 03/25/2024 1:09 PM CDT Inhaled Oxygen Concentration - - Weight 92.1 kg (203 lb) 03/25/2024 1:09 PM CDT Height 160 cm (5' 3 ) 02/15/2022 8:27 AM CDT Body Mass Index 35.96 02/15/2022 8:27 AM CDT Plan of Treatment Upcoming Encounters Date Type Department Care Team (Late st Contact Info) Description 03/31/2025 1:00 PM CDT Office Visit [facility] [place] [address] [place] [phone] Yosef Lyman MD [address] [facility] [address] [place] [phone] Health Maintenance Due Date Last Done Comments RSV VACCINE (60+ or ) (1 - 1-dose 75+ series) 2013 INFLUENZA VACCINE (#1) 2024 , 03/08/2022, 03/11/2021, Additional history exists COVID-19 Vaccine ( - 2023-2 5 season) 2024 09/22/2021, 04/24/2021, 08/28/2020, Additional history exists DTAP/TDAP/TD VACCINES (2 - T d or Tdap) 04/09/2029 04/09/2019 PNEUMOCOCCAL VACCINE 50+ YEARS Completed 1 , 02/24/2015, 12/05/2010 OSTEOPOROSIS SCREENING Completed 11/28/2022, 2022 ZOSTER VACCINE Completed 05/09/2023, 01/19/2023 Insurance MEDICARE PART A AND B GENERIC PAYOR Care Teams Floral Designer Salesperson Relationship Specialty Start Date End Date Anton Rice DO [facility] [place] [address] PCP - General Family Practice 01/13/22
--- OUTSIDE RECORDS SUMMARY | 2024-08-23 14:32 | XMS_ITS | Continuity of Care Document ---
Author Organization [facility] Address [address] [place] [address] Phone Care Team Providers Care Mine Deputy Name Role Phone Tran OD, Félix Unavailable Unavailable Advance Directives Directive Yes / No Effective Date File Name No Information Encounters Encounter Description Practice Location Reason(s) For Visit Diagnoses Date Provider Providers Copied on Encounter [facility], [address], [place], [place], [id number], [place] tel:[phone] [facility] No Information [address] Tran OD Félix. [address] [facility] [address] , [address], [place], [address], [place]. tel:[phone] Family History Family Member Type Diagnosis Age At Onset No Information Payers Payer name Insurance type Covered republican ID Authoriza tion(s) [employer] SOI CI [id number] Social History Type Description Quantity Date Captured Comments Sex Female Smoking Status No Information Chief Complaint And Reason For Visit No Information Reason For Referral Reason For Referral No Information History Of Present Illness Encounter Date Complaint History Of Prese nt Illness No Information Functional Status Date Functional Assessmen t No Information Instructions Date Instruction Additional Infor mation No Information Assessments Type Assessment Date No Information Patient Care Teams Name Effective Dates (start - stop) Status Members No Information
--- OUTSIDE RECORDS SUMMARY | 2024-08-23 14:32 | XMS_ITS | Clinical Summary ---
Author Organization [facility] Address [facility] [place] [address] Care Team Providers Care Acid Plant Helper Name Role Phone Anton Rice Primary Care Provider + Allergies Active Allergy Reactions Criticality Noted Date Comments Shellfish Allergy Rash Medium 02/25/2018 Shellfish-Derived Products Rash Medium 2 Sulfa Antibiotics Rash Medium 05/21/2012 Reaction: RASH, Medications omeprazole (PRILOSEC) 40 MG capsuleIndication s:Acid Indigestion TAKE 1 CAPSULE(40 MG) BY MOUTH DAILY. DO NOT TAKE AT THE SAME TIME XARELTO 90 capsule 023 Active vitamin C (ASCORBIC ACID) 500 MG tabletIndications :supplement Take 1 tablet (500 mg total) by mouth 2 (two) times daily. Indications: supplement Active vitamin B-12 (CYANOCOBALAMIN) (CYANOCOBALAMIN) 1000 mcg tabletIndications :supplement Take 1 tablet (1,000 mcg total) by mouth daily. Indications: supplement Active amLODIPine Besylate-Valsarta n 10-320 MG TabIndications:Hy pertension Take 1 tablet by mouth daily. 30 tablet 024 Active ondansetron (ZOFRAN-ODT) 4 MG disintegrating tabletIndications :Nausea Take 1 tablet (4 mg total) by mouth every 8 (eight) hours as needed for Nausea. 20 tablet 024 Active acetaminophen (TYLENOL) 325 MG tabletIndications :Pain Take 2 tablets (650 mg total) by mouth. Indications: Pain 024 Active traMADol (ULTRAM) 50 MG tabletIndications :Chronic Pain Take 1 tablet (50 mg total) by mouth every 12 (twelve) hours as needed for Pain. Indications: Chronic Pain 30 tablet 024 Active pramipexole (MIRAPEX) 1 MG tabletIndications :Restless Leg Syndrome TAKE 1 TO 2 TABLETS(1 TO 2 MG) BY MOUTH EVERY NIGHT AT BEDTIME 180 tablet 1 024 Active cefdinir (OMNICEF) 300 MG Cap capsuleIndication s:Prophylaxis Take 1 capsule (300 mg total) by mouth every 12 (twelve) hours. 180 capsule 1 024 Active DULoxetine (CYMBALTA) 30 MG capsuleIndication s:Anxiety TAKE 1 CAPSULE BY MOUTH DAILY FOR TOTAL DAILY DOSE OF 90 MG, TAKE WITH 60 MG CAPSULE 90 capsule 024 Active DULoxetine (CYMBALTA) 60 MG capsuleIndication s:Anxiety TAKE 1 CAPSULE BY MOUTH DAILY 90 capsule 024 Active Pregabalin 300 MG CapIndications:Fi bromyalgia Syndrome TAKE 1 CAPSULE BY MOUTH TWICE DAILY 60 capsule 2 024 Active donepezil (ARICEPT) 5 MG TabIndications:Me erasmo Impairment TAKE 1 TABLET(5 MG) BY MOUTH EVERY NIGHT AT BEDTIME 90 tablet 024 Active pravastatin (PRAVACHOL) 20 MG tabletIndications :Hyperlipidemia TAKE 1 TABLET(20 MG) BY MOUTH EVERY NIGHT AT BEDTIME 90 tablet 025 Active valsartan-hydroCH LOROthiazide (DIOVAN-HCT) 320-25 MG tabletIndications :Primary hypertension Take 1 tablet by mouth daily. PATIENT DUE FOR NEXT APPOINTMENT, PLEASE CALL OFFICE 90 tablet 025 Active ferrous sulfate, 65 mg elemental, (FEROSUL) 325 (65 FE) MG tabletIndications :Iron Deficiency Indications: Iron Deficiency TAKE 2 TABLETS BY MOUTH DAILY. APPOINTMENT NEEDED FOR FURTHER REFILLS, PLEASE CONTACT OFFICE. 60 tablet 025 Active mirabegron ER (MYRBETRIQ) 50 MG 24 hr tabletIndications :Urge incontinence of urine Take 1 tablet (50 mg total) by mouth daily. APPOINTMENT NEEDED FOR FURTHER REFILLS, PLEASE CONTACT OFFICE. 30 tablet 025 Active famotidine (PEPCID) 40 MG tabletIndications :Acid Indigestion TAKE 1 TABLET(40 MG) BY MOUTH TWICE DAILY 180 tablet 025 Active mirabegron ER (MYRBETRIQ) 50 MG 24 hr tabletIndications :Overactive Bladder Take 1 tablet (50 mg total) by mouth daily. 30 tablet 2 024 2024 Discontinued famotidine (PEPCID) 40 MG tabletIndications :Acid Indigestion TAKE 1 TABLET(40 MG) BY MOUTH TWICE DAILY 180 tablet 024 2024 Discontinued FEROSUL 325 (65 Fe) MG tabletIndications :Iron Deficiency TAKE 2 TABLETS BY MOUTH DAILY 180 tablet 024 2024 Discontinued Active Problems Problem Noted Date Diagnosed Date Type 2 diabetes mellitus ([facility]) 06/16 B12 deficiency 04/04/2022 Vitamin D deficiency 04/04/2022 Hiatal hernia 03/15/2022 Overview (03/15/2022): Added automatically from request for surgery [id number] Abnormal barium swallow 03/15/2022 Overview (03/15/2022): Added automatically from request for surgery [id number] Iron deficiency anemia 01/13/2022 Other fatigue 11/14/2021 Other specified anemias 11/14/2021 Memory loss 10/25/2021 Overview (10/25/2021): Last Assessment & Plan: Seems mild but is worried, refer to memory unit Displacement of lumbar intervertebral disc 04/07 Chest pain on breathing 04/21/2020 Overview (10/25/2021): Sounds more MSK in origin psbl shoulder derangement. Of course a breast or chest wall process to consider Last Assessment & Plan: CXR, breast US, shoulder US Major depressive disorder with single episode Overview (10/25/2021): Last Assessment & Plan: We reviewed and completed PHQ9 Start cymbalta 30 and this is also to help the chronic pain BRBPR (bright red blood per rectum) 10/02/2018 Overview (10/25/2021): Last Assessment & Plan: We will check the CBC, will stop the eliquis Leg pain, inferior, left 08/07/2018 Overview (10/25/2021): There is evidence that likely is a superficial varicose vein but cannot r/o DVT Last Assessment & Plan: Send for LE doppler today 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 P.r.n. = max 300 mg/day, typically just takes 100 mg bedtime Oral morphine Equil: 30 mg/day max, but uses opioid sparingly Benzo: no Other : no Plan : Follow-up 2 months - continue as needed Urine drug screen 09/19/17 [facility] - negative all drugs screened (consistent with prescribed tramadol) Urine drug screen 11/01/18 [facility] - consistent with prescribed tramadol Urine drug screen [facility] 09/01/19 - consistent with prescribed tramadol Urine drug screen [facility] 03/05/20 - consistent with prescribed analgesics Urine drug screen [facility] 01/21/21 - consistent with prescribed tramadol Postlaminectomy syndrome of lumbar region 2016 Overview (10/25/2021): Last Assessment & Plan: While I am certainly not a spine [...] other shots or different modalities may help Thyroid nodule 01/03/2017 Postoperative wound infection 09/25/2016 Overview (10/25/2021): Lifelong antibiotic Encounter for long-term (current) use of antibio tics 07/25/2016 Spinal stenosis of cervical region 01/01/2016 Chronic pain 07/29/2015 Overview (10/25/2021): Last Assessment & Plan: Up the Lyrica, consider Sanchez eval Incontinence of feces with fecal urgency 015 Overview (10/25/2021): Last Assessment & Plan: I am increasingly suspicious of a pelvic floor muscular weakness process. I would like a referral to the urogynecologist Urge incontinence of urine 06/25/2014 Overview (10/25/2021): Last Assessment & Plan: Improving with behavioral changes. Sickness in family 10/24/2013 Gastroesophageal reflux disease without esophagi tis 07/17/2013 Overview (10/25/2021): Based on symptoms and lack of warning sx we will launch a THERAPEUTIC TRIAL of PPI x 3mo Allergic reaction to the nexium Last Assessment & Plan: Restart famotidine 40 Obstructive sleep apnea syndrome 07/17/2013 Overactive bladder 07/17/2013 Hyperlipidemia 04/19/2011 Overview (10/25/2021): Last Assessment & Plan: Lipid abnormalities are improving with treatment. Pharmacotherapy as ordered. Lipids will be reassessed in 6 months. Hypertension 04/19/2011 Overview (10/25/2021): Last Assessment & Plan: Hypertension is improving with treatment. Continue current treatment regimen. Dietary sodium restriction. Weight loss. Regular aerobic exercise. Continue current medications. Blood pressure will be reassessed in 3 months. Restless legs syndrome 04/19/2011 Scalp psoriasis 04/19/2011 Lumbago 10/21/2010 Overview (10/25/2021): Still in pain Last Assessment & Plan: Discussed approach to chronic low back pain. Lumbar spine MRI [facility] 09/01/20 - displaced lumbar disc - L1-2 disc protrusion with superior/inferior extrusion eccentric to right contributing to right lateral recess and severe canal narrowing; mild disc bulge L3-3, L5-S1 - Rec inc duloxetine DR 90mg every day. SER - Cont meloxicam 7.5 every day, Lyrica 150mg bid, tramadol 50-100mg tid prn for pain. - cont f/u with pain management - Rec aquatic exercise. Resolved Problems Problem Noted Date Diagnosed Date Resolved Date Thrombophlebitis of superfic ial veins of left lower extremity 08/07/2018 04/04/2022 Overview (10/25/2021): Seen on exam w/ cords present in superficial system below the left knee but we sent same day for LE venous doppler and has much more extensive superficial clot throughout the left saphenous even above the knee in the thigh Last Assessment & Plan: Now s/p 40d Rx, will stop eliquis. Reviewed doppler yesterday Sacroiliitis 04/28/2017 12/13/2021 Encounters Date Type Department Care Team Description 08/04/2024 10:40 AM NURSE PRACTITIONER MANAGER Office Visit [facility] Medical Group Multispecialty Care - [facility] [address] [place] [address] Anton Rice, Hannah Tapia NP Follow Up (F/u (feces incontinence)) 08/04/2024 Travel 07/23/2024 Telephone [facility] Internal [address] [address] Anton Rice, DO Prior Authorization (Cefdinir 300mg capsules (GoodRx) ) 07/17/2024 12:30 PM NURSE PRACTITIONER MANAGER - 07/17/2024 11:59 PM NURSE PRACTITIONER MANAGER Hospital Encounter [facility] [address] [place] [address] Anton Rice, Wendy Johns, RD Discharge Disposition: Home or Self Care (Routine Discharge) 07/17/2024 Travel 07/08/2024 Scan [facility] [employer] [facility] Scanned, [facility] 07/02/[address] [address] Anton Rice, DO Information 06/17/[address] [address] Anton Rice, Results 06/05/2024 9:20 AM NURSE PRACTITIONER MANAGER Office Visit [address] [address] Anton Rice, Urinary Incontinence (The patient states this is new onset after hernia repair in February. ); Fecal Incontinence (Loose stool) 06/05/[address] [address] Anton Rice, Question 06/05/2024 Travel from Last 3 Months Immunizations Name Administration Dates Next Due Abrysvo Respiratory Syncytia l Virus (RSV) 0.5 mL, PF 06/06/2023 Fluzone High Dose (IIV, triv alent, 0.5mL) 03/14/2019,02/25/2018,03/02/2014 Fluzone High Dose - >Age 65 (Prefilled Syringe) 03/28/2023,03/08/2022,03/11/2021,2019,02/25/2018 Influenza (Generic) 03/18/2017,04/18/2016,2015 Influenza Adult (Generic) 03/14/2019,03/2018,02/12/2017,2014,03/02/2014 MODERNA COVID-19 (12+) MRNA, LNP-S, PF, 100 MCG/ 0.5 ML DOSE 04/24/2021,08/28/2020,07/31/2020 MODERNA COVID-19 ([employer] KAYKAY BRUCE), MRNA, LNP-S, PF, 50 MCG/ 0.25 ML DOSE 09/22/2021 MODERNA COVID-19, 6-11 Prima ry (DARK BLUE CAP) (previous 18+ monovalent booster), mRNA, LNP-S,PF, 50 mcg/ 0.50mL dose 09/22/2021,04/24/2021,08/28/2020,2020 Pneumococcal (Pneumovax 23) 12/05/2010 Pneumococcal (Prevnar 13) 04/09/2019,02/24/2015 Shingrix 05/09/2023,01/19/2023 Tdap (Generic) 04/09/2019 Family History Medical History Relation Comments Alcohol Abuse Father Alzheimers Sister 1 Diabetes Sister 1 Hyperlipidemia Sister 1 Hypertension Sister 1 Breast Cancer Sister 2 Heart Disease Son Relation Status Comments Father Mother Sister 1 Sister 2 Son Social History Tobacco Use Types Packs/Day Years Used Date Smoking Tobacco: Former Cigarettes 0.5 5 1 975 - 1980 Smokeless Tobacco: Never Tobacco Cessation:Counseling Given: No Alcohol Use Standard Drinks/Week Comments Not Currently 1.7 (1 standard drink = 0.6 oz p ure alcohol) not very often OASIS D0700: Social Isolation Answer Da te Recorded Frequency of experiencing loneliness or isolatio n Never 03/26/2024 OASIS A1250: Transportation Answer Date Recorded Lack of Transportation (Medical) No 03/26/2024 Lack of Transportation (Non-Medical) No 03/26/2024 Patient Unable or Declines to Respond No 03/26/2024 OASIS B1300: Health Literacy Answer Shaggy e Recorded Frequency of needing help to read materials from doctor or pharmacy Never 03/26/2024 PHQ-2 Answer Date Recorded Patient Health Questionnaire-2 Score 0 08/04/2024 Hunger Vital Sign Answer Date Recorded Within the past 12 months, y ou worried that your food would run out before you got the money to buy more. Never true 07/17/19 Within the past 12 months, t he food you bought just didn't last and you didn't have money to get more. Never true 07/17/2024 Comments No Sex and Gender Information Value Date Recorded Sex Assigned at Female 06/05/2024 9:39 AM NURSE PRACTITIONER MANAGER Legal Sex Female 12:22 PM NURSE PRACTITIONER MANAGER Gender Identity Female 06/05/2024 9:39 AM NURSE PRACTITIONER MANAGER Sexual Orientation Not on file Last Filed Vital Signs Vital Sign Reading Time Taken Comments Blood Pressure 122/73 08/04/2024 10:38 AM NURSE PRACTITIONER MANAGER Pulse 68 08/04/2024 10:38 AM NURSE PRACTITIONER MANAGER Temperature 36.7 C (98 F) 08/04/2024 10:38 AM NURSE PRACTITIONER MANAGER Respiratory Rate 20 08/04/2024 10:38 AM NURSE PRACTITIONER MANAGER Oxygen Saturation 96% 08/04/2024 10:38 AM NURSE PRACTITIONER MANAGER Inhaled Oxygen Concentration - - Weight 90.3 kg (199 lb) 08/04/2024 10:38 AM NURSE PRACTITIONER MANAGER Height 160 cm (5' 3 ) 08/04/2024 10:38 AM NURSE PRACTITIONER MANAGER Body Mass Index 35.25 08/04/2024 10:38 AM NURSE PRACTITIONER MANAGER Plan of Treatment Upcoming Encounters Date Type Department Care Team (Late st Contact Info) Description 09/02/2024 1:00 PM CDT Office Visit [facility] Medical Group Family & Internal Medicine [address] [address] Anton Rice, [facility] [place] [address] Health Maintenance Due Date Last Done Comments Diabetes: Retinopathy Eye Exam 1958 Annual Medicare Wellness Visit 2003 COVID-19 Vaccine ( season) 2024 03/16/2024, 03/28/2023, 09/22/2021, Additional history exists Lipid Panel 09/12/2024 09/13/2023, 10/25/2021 Hemoglobin A1C 12/04/2024 06/05/2024, 09/0 06/2023, 11/28/2021 DTaP, Tdap and Td Vaccines (2 - Td or Tdap) 04/09/2029 04/09/2019 Pneumococcal Vaccine: 65+ Years Completed 04/09/2019, 02/24/2015, 12/05/2010 Zoster Vaccines Completed 05/09/2023, 01/19/2023 RSV Immunization or 60+ Years Completed 06/06/2023 Influenza Adult Completed 03/16/2024, 03/18, 03/08/2022, Additional history exists PHQ-2 ([facility]) Completed 08/04/2024 Meningococcal B Vaccine Aged Out No l onger eligible based on patient's age to complete this topic Meningococcal Vaccine Aged Out No mildred radha eligible based on patient's age to complete this topic RSV Immunizations Under 20 Months Aged Out No longer eligible based on patient's age to complete this topic Medical Devices Implanted Type Area Conical Mixer Device Identifier Shelf Expiration Date Model / Serial / Lot Knees Procedures Procedure Name Priority Date/Time Associated Diagnosis Comments URINALYSIS Routine 06/05/2024 10:45 AM NURSE PRACTITIONER MANAGER Iron deficiency anemia, unspecified iron deficiency anemia type Elevated glucose Urinary incontinence, unspecified type HEMOGLOBIN, GLYCOSYLATED Routine 06/05/2024 10:34 AM NURSE PRACTITIONER MANAGER Iron deficiency anemia, unspecified iron deficiency anemia type Elevated glucose Urinary incontinence, unspecified type COMPREHENSIVE METABOLIC PANEL Routine 06/05/2024 10:34 AM NURSE PRACTITIONER MANAGER Iron deficiency anemia, unspecified iron deficiency anemia type Elevated glucose Urinary incontinence, unspecified type CBC W/DIFF AUTOMATED Routine 06/05/2024 10:34 AM NURSE PRACTITIONER MANAGER Iron deficiency anemia, unspecified iron deficiency anemia type Elevated glucose Urinary incontinence, unspecified type LIPID PANEL Routine 09/13/2023 11:44 AM CDT from Last 3 Months or Most Recently Relevant to Health Maintenance Results * (ABNORMAL) URINALYSIS (06/05/2024 10:45 AM NURSE PRACTITIONER MANAGER) COLOR (U) YELLOW YELLOW [place] APPEARANCE SEMEN CLOUDY(A) CLEAR [place] SPECIFIC GRAVITY (U) 1.018 1.001 - 1.035 [place] PH (U) 5.5 5.0 - 8.0 [place] URINE GLUCOSE NEGATIVE NEGATIVE [place] KETONE (U) NEGATIVE NEGATIVE [place] BLOOD (U) 1+(A) NEGATIVE [place] PROTEIN (U) NEGATIVE NEGATIVE [place] URINE SPECIMEN OBTAINED BY CLEAN CATCH PROCEDURE / Unknown 06/05/2024 10:45 AM NURSE PRACTITIONER MANAGER 06/05/2024 10:45 AM NURSE PRACTITIONER MANAGER Narrative Resulting Agency Comment Performing Organization Information: Site ID: [place] Name: [facility] Address: [address] [place] [address] [place] [address] Director: Janelle Feng Anton Rice DO URINE ORDERABLES Final R esult [facility] [place] [address] [address], * (ABNORMAL) HEMOGLOBIN, GLYCOSYLATED (06/05/2024 10:34 AM NURSE PRACTITIONER MANAGER) Pathologist [facility] HGB A1C 6.6(H) <5.7 % of total Hgb [place] Comment: For someone without known diabetes, a hemoglobin A1c value of 6.5% or greater indicates that they may have diabetes and this should be confirmed with a follow-up test. For someone with known diabetes, a value <7% indicates that their diabetes is well controlled and a value greater than or equal to 7% indicates suboptimal control. A1c targets should be individualized based on duration of diabetes, age, comorbid conditions, and other considerations. Currently, no consensus exists regarding use of hemoglobin A1c for diagnosis of diabetes for children. 06/05/2024 10:3 4 AM NURSE PRACTITIONER MANAGER 06/05/2024 10:35 AM NURSE PRACTITIONER MANAGER Narrative Resulting Agency Comment Performing Organization Information: Site ID: SL Name: [facility] Address: [address] [place] [address] Director: Janelle Feng Anton Rice DO LABORATORY Final Re sult [facility] [place] [facility] [place] [address] [place] [address], * (ABNORMAL) COMPREHENSIVE METABOLIC PANEL (06/05/2024 10:34 AM NURSE PRACTITIONER MANAGER) GLUCOSE 116(H) 65 - 99 mg/dL [place] Comment: Fasting reference interval For someone without known diabetes, a glucose value between 100 and 125 mg/dL is consistent with prediabetes and should be confirmed with a follow-up test. BUN 16 7 - 25 mg/dL [place] CREATININE S/P/B 0.77 0.60 - 0.95 mg/dL [place] GFR ESTIMATE 75 > OR = 60 mL/min/1. 73m2 [place] BUN CREATININE RATIO SEE NOTE: 6 - 22 (calc) [place] Comment: Not Reported: BUN and Creatinine are within reference range. SODIUM S/P/B 143 135 - 146 mmol/L [place] POTASSIUM S/P/B 4.3 3.5 - 5.3 mmol/L [place] CHLORIDE S/P/B 100 98 - 110 mmol/L [place] CO2 33(H) 20 - 32 mmol/L [place] CALCIUM S/P/B 9.8 8.6 - 10.4 mg/dL [place] TOTAL PROTEIN S/P/B 7.1 6.1 - 8.1 g/dL [place] ALBUMIN S/P/B 4.3 3.6 - 5.1 g/dL [place] GLOBULIN 2.8 1.9 - 3.7 g/dL (calc) [place] ALBUMIN/GLOBULIN RATIO 1.5 1.0 - 2.5 (calc) [place] BILIRUBIN TOTAL S/P/B 0.7 0.2 - 1.2 mg/dL [place] ALKALINE PHOSPHATASE S/P/B 84 37 - 153 U/L [place] AST 29 10 - 35 U/L [place] ALT 19 6 - 29 U/L [place] 06/05/2024 10:3 4 AM NURSE PRACTITIONER MANAGER 06/05/2024 10:35 AM NURSE PRACTITIONER MANAGER Narrative Resulting Agency Comment Performing Organization Information: Site ID: [place] Name: [facility] Address: [address] [place] [address] [place] [address] Director: Janelle Feng Anton Rice DO LABORATORY Final Re sult Performing Organization Address City/State/[facility] Co de Phone Number [facility] [place] [place], [place] [id number] [place] [phone], * (ABNORMAL) CBC W/DIFF AUTOMATED (06/05/2024 10:34 AM NURSE PRACTITIONER MANAGER) WBC 9.7 3.8 - 10.8 Thousand/u L [place] RBC 4.92 3.80 - 5.10 Million/uL [place] HGB 14.5 11.7 - 15.5 g/dL [place] HCT 46.8(H) 35.0 - 45.0 % [place] MCV 95.1 80.0 - 100.0 fL [place] MCH 29.5 27.0 - 33.0 pg [place] MCHC 31.0(L) 32.0 - 36.0 g/dL [place] Comment: For adults, a slight decrease in the calculated MCHC value (in the range of 30 to 32 g/dL) is most likely not clinically significant; however, it should be interpreted with caution in correlation with other red cell parameters and the patient's clinical condition. RDW 13.6 11.0 - 15.0 % [place] PLT 179 140 - 400 Thousand/u L [place] MPV 13.7(H) 7.5 - 12.5 fL [place] ABS. NEUTROPHILS 6,334 1,500 - 7,800 cells/uL [place] ABS. LYMPHOCYTES 2,231 850 - 3,900 cells/uL [place] ABS. MONOCYTES 621 200 - 950 cells/uL [place] ABS. EOSINOPHILS 475 15 - 500 cells/uL [place] ABS. BASOPHILS 39 0 - 200 cells/uL [place] SEG NEUTROPHILS 65.3 % QUES [place] LYMPHOCYTES 23.0 % [place] MONOCYTES 6.4 % [place] EOSINOPHILS 4.9 % [place] BASOPHILS 0.4 % [place] 06/05/2024 10:3 4 AM NURSE PRACTITIONER MANAGER 06/05/2024 10:35 AM NURSE PRACTITIONER MANAGER Narrative Resulting Agency Comment Performing Organization Information: Site ID: [place] Name: [facility] Address: [address] [place] [address] [place] [address] Director: Janelle Feng Anton Rice DO LABORATORY Final Re sult [facility] [place] [facility] [address] [address], * (ABNORMAL) LIPID PANEL (09/13/2023 11:44 AM CDT) CHOLESTEROL 231(H) <200 mg/dL [place] HDL 56 > OR = 50 mg/dL [place] TRIGLYCERIDES 127 <150 mg/dL [place] LDL (CALCULATED) 150(H) mg/dL (calc) [place] Comment: Reference range: <100 Desirable range <100 mg/dL for primary prevention; <70 mg/dL for patients with CHD or diabetic patients with > or = 2 CHD risk factors. LDL-C is now calculated using the Nino calculation, which is a validated novel method providing better accuracy than the Friedewald equation in the estimation of LDL-C. Juan SALAZAR et al. MARLA. 2013;310(19): 1036-7457 (http://education.Linquet/faq/AXG677) CHOL/HDL RATIO 4.1 <5.0 (calc) [place] NON HDL CHOLESTEROL 175(H) <130 mg/dL (calc) [place] Comment: For patients with diabetes plus 1 major ASCVD risk factor, treating to a non-HDL-C goal of <100 mg/dL (LDL-C of <70 mg/dL) is considered a therapeutic option. 09/13/2023 11:4 4 AM CDT 09/13/2023 11:50 AM CDT Narrative Resulting Agency Comment Performing Organization Information: Site ID: [place] Name: [facility] Address: [address] [place] [address] Director: Janelle Feng Anton Rice DO LABORATORY Final Re sult [facility] [place] [facility] [address] from Last 3 Months or Most Recently Relevant to Health Maintenance Insurance MEDICARE LOCAL [facility] [place] Advance Directives Documents on File Type Date Recorded Patient Dog Control Officer Expl anation Advance Directives and Living Will 04/23/2022 7:44 AM [employer] * Full Code (Latest Code Status on File) Date Activated Date Inactivated Comments 03/03/2024 9:56 AM Care Teams Acid Plant Helper Relationship Specialty Start Date End Date Anton Rice DO [address] [place] [id number] PCP - General FAMILY PRACTICE 10/07/21
--- NOTE | 2024-08-23 14:50 | PC.NURSE ---
Accucheck 90
--- NOTE | 2024-08-23 14:50 | PC.NURSE ---
Accucheck at 1428 was 90.
[2024-08-23 14:54] VITALS: BP 88/46; PULSE 73; RESP 19; TEMP 36.4; O2SAT 96
[2024-08-23 14:55] LABS: Basophils Percent Auto 0.3 % (0.2-1.2); Eosinophils Absolute Auto 0.6 K/mm3 (0-0.3); Eosinophils Percent Auto 5.5 % (0-4.4); Hematocrit 40.1 % (37.0-47.0); Hemoglobin 12.7 g/dL (12.0-15.0); Immature Granulocyte Absolute 0.06 K/mm3 (0.00-0.031); Immature Granulocyte Percent A 0.5 % (0-0.5); Lymphocytes Absolute Auto 2.78 K/mm3 (0.9-3.2); Lymphocytes Percent Auto 23.7 % (18.3-44.2); Mean Corpuscular HGB Conc 31.7 g/dl (32-36); Mean Corpuscular Hemoglobin 30.2 pg (26-34); Mean Corpuscular Volume 95.5 fl (80-100); Monocytes Percent Auto 8.3 % (2.6-8.5); Neutrophils Absolute Auto 7.2 K/mm3 (1.3-6.7); Neutrophils Percent Auto 61.7 % (45.5-73.1); Platelet Count Result 177 k/mm3 (150-375); Red Cell Distribution Width 14.4 % (11.5-14.5); White Blood Count 11.7 K/mm3 (4.5-10.0)
[2024-08-23 15:01] VITALS: O2SAT 94
[2024-08-23 15:09] LABS: Alanine Aminotransferase 19 U/L (6-35); Alkaline Phosphatase 66 U/L (38-126); Anion Gap 13 mmol/L (4-12); Aspartate Amino Transferase 31 U/L (14-36); Bilirubin,Total 0.5 mg/dL (0.2-1.3); Blood Urea Nitrogen 27 mg/dL (7-17); Carbon Dioxide 22 mmol/L (22-30); Chloride 106 mmol/L (98-107); Estimated CRCL calculation 36 ml/min; Estimated Glomerular Filt Rate 49; Glucose 77 mg/dL (65-110); Potassium 3.8 mmol/L (3.4-5.0); Sodium 141 mmol/L (137-145)
[2024-08-23 15:14] LABS: Prothrombin Time 13.9 Seconds (11.1-14.7)
[2024-08-23 15:15] LABS: Partial Thromboplastin Time 26.5 Seconds (22.3-36.8)
--- NOTE | 2024-08-23 15:18 | ED.GENADULT ---
HPI - General Adult General Chief complaint: Altered Mental Status Stated complaint: ams Time Seen by Provider: 08/23/24 14:53 History of Present Illness HPI narrative: 84-year-old female present to the emergency department for evaluation for altered mental status. Patient had been at the [employer] and did have a vodka and cranberry for lunch. Patient did not finish her entire drink. With got home he states he was unable to wake her up and he brought some other items into the house and came back up to the car to wake her up with solid she is breathing but could not wake her. Patient was then brought to the emergency department by private transport by her . Patient needed to be assisted out of the vehicle. When patient was brought into the emergency department she became more alert appropriate. At time of initial evaluation patient denies any pain or complaint but states she is kind of confused on why she is here. Patient is alert and oriented x4. Patient denies any complaints Related Data Home Medications ?Medication ?Instructions ?Recorded ?Confirmed ?Last Taken ?Type pravastatin 20 mg tablet 20 mg PO DAILY 08/11/19 05/13/24 08/13/19 20:00 History tramadol 50 mg tablet 50 mg PO Q6H PRN Pain, Mild 08/11/19 05/13/24 08/13/19 20:00 History docusate sodium 100 mg capsule 100 mg PO DAILY 12/31/19 05/13/24 Unknown History pramipexole 1 mg tablet 1 - 2 mg PO .QHS 12/31/19 05/13/24 Unknown History pregabalin 75 mg capsule 75 mg PO BID 12/31/19 05/13/24 Unknown History valsartan 320 1 tablet PO DAILY 12/31/19 05/13/24 Unknown History mg-hydrochlorothiazide 25 mg tablet cefdinir 300 mg capsule 300 mg PO Q12H 03/10/20 05/13/24 Unknown History duloxetine 30 mg capsule,delayed 30 mg PO DAILY 02/09/22 05/13/24 Unknown History release duloxetine 60 mg capsule,delayed 60 mg PO DAILY 02/09/22 05/13/24 Unknown History release famotidine 40 mg tablet 40 mg PO BID 02/09/22 05/13/24 Unknown History Allergies Allergy/AdvReac Type Severity Reaction Status Date / Time shellfish derived Allergy Mild rash Verified 08/23/24 16:46 Sulfa (Sulfonamide Allergy Mild Rash Verified 08/23/24 16:46 Antibiotics) Review of Systems Review of Systems: All systems reviewed & are unremarkable except as noted in HPI and below PMFSH Past Medical History Medical History Depression Dysphagia GERD (gastroesophageal reflux disease) Hiatal hernia Hyperlipidemia Hypertension IBS (irritable bowel syndrome) Impacted cerumen of both ears (~07/2019) Low back pain Post-menopausal Surgical History Surgical History History of back surgery 05/2016 Hx of total knee arthroplasty BL: 2014 Family History Family History Sibling Family history of Alzheimer's disease Breast cancer Father Heart disease Alcoholism Mother Pneumonia Social History Social History (Updated 05/13/24 @ 08:06 by Puja Huang CMA) Smoking packs per day: 1 Smoking cigarettes per day: 20.0 Years smoked: 2 Smoking pack-years: 2.00 Smoking status: Former smoker Tobacco type: cigarettes Alcohol intake: current Alcohol use details: rarely Substance use: never Do You Feel Safe in your Home?: Yes Lack of Transportation: No Lack of Food: Never True Current Housing: I Have Housing Concerned About Future Housing: No Difficulty Paying Gas/Electric Bills: No Difficulty Paying for Meds: No Currently Unemployed: No Education: High School Diploma/GED Difficulty w/ Childcare or Family Care: No Living arrangements: with family Occupation/Education: retired Gender identity (if verbalized by the patient): Female Spiritual care concerns: No Exam Narrative: APPEARANCE: Well appearing, no pain, no distress, well-nourished. HEAD: normocephalic, atraumatic. EYES: PERRLA/EOMI, conjunctivae clear. NOSE: Normal no drainage EARS:TMS clear with good light reflex. THROAT: Pharynx clear, no exudate. NECK: Supple. No adenopathy, no masses. RESPIRATORY: Airway patent, respirations nonlabored. Clear to auscultation bilaterally, no rales, rhonchi, wheezing. CARDIOVASCULAR: Regular rate and rhythm without murmurs rubs or gallops. ABDOMINAL: Soft, nontender, nondistended, normal bowel sounds MUSCULOSKELETAL: Moves all extremities. Strength/ROM intact, No edema, No calf tenderness. NEURO: Alert. Cranial nerves II through XII intact. Good gait. Good coordination SKIN: Warm, dry. Normal Color Course Vital Signs Vital signs: Vital Signs Temperature 97.6 F 08/23/24 14:54 Pulse Rate 73 08/23/24 14:54 Respiratory Rate 19 08/23/24 14:54 Blood Pressure 88/46 L 08/23/24 14:54 Pulse Oximetry 96 08/23/24 14:54 Oxygen Delivery Room Air 08/23/24 14:54 Temperature 97.6 F 08/23/24 14:54 Pulse Rate 63 08/23/24 18:00 Respiratory Rate 17 08/23/24 18:00 Blood Pressure 94/80 L 08/23/24 18:00 Pulse Oximetry 96 08/23/24 18:00 Oxygen Delivery Room Air 08/23/24 15:01 Medical Decision Making MDM Narrative Medical decision making narrative: 84-year-old female to the emergency department for evaluation for a period of altered mental status. Patient is currently afebrile but does have a leukocytosis of 11.7 hemoglobin of 12.7. Patient's INR is 1.0. Patient has no significant abnormalities on her CMP UA was concerning for a urinary tract infection. Patient's alcohol was negative. Patient was started on Rocephin emergency department. Head CT was negative. On re-evaluation patient does feel improved. Patient was offered admission for further evaluation if she did not feel strong enough to go home but patient is alert appropriate and is requesting to be discharged home. Patient was discharged home with Keflex. Patient was encouraged to have close follow-up with primary care physician. All questions concerns were addressed. Differential Diagnosis Differential Diagnosis: CVA, TIA, UTI, alcohol intoxication, syncope, cardiac arrhythmia Vital Signs Vital Signs: Vital Signs Temperature 97.6 F 08/23/24 14:54 Pulse Rate 73 08/23/24 14:54 Respiratory Rate 19 08/23/24 14:54 Blood Pressure 88/46 L 08/23/24 14:54 Pulse Oximetry 96 08/23/24 14:54 Oxygen Delivery Room Air 08/23/24 14:54 Temperature 97.6 F 08/23/24 14:54 Pulse Rate 63 08/23/24 18:00 Respiratory Rate 17 08/23/24 18:00 Blood Pressure 94/80 L 08/23/24 18:00 Pulse Oximetry 96 08/23/24 18:00 Oxygen Delivery Room Air 08/23/24 15:01 Lab Data Lab results reviewed: Yes I reviewed the patient's lab results. 08/23/24 14:51 08/23/24 14:51 Labs: Lab Results 08/23/24 08/23/24 Range/Units 14:51 15:51 WBC 11.7 H (4.5-10.0) K/mm3 RBC 4.20 (4.2-5.4) M/mm3 Hgb 12.7 (12.0-15.0) g/dL Hct 40.1 (37.0-47.0) % MCV 95.5 (80-100) fl MCH 30.2 (26-34) pg MCHC 31.7 L (32-36) g/dl RDW 14.4 (11.5-14.5) % Plt Count 177 (150-375) k/mm3 MPV 13.0 H (7.4-10.4) fl Immature Gran % (Auto) 0.5 (0-0.5) % Neut % (Auto) 61.7 (45.5-73.1) % Lymph % (Auto) 23.7 (18.3-44.2) % [place] % (Auto) 8.3 (2.6-8.5) % Eos % (Auto) 5.5 H (0-4.4) % Baso % (Auto) 0.3 (0.2-1.2) % Lymph # (Auto) 2.78 (0.9-3.2) K/mm3 [place] # (Auto) 1.0 H (0.1-0.6) K/mm3 Eos # (Auto) 0.6 H (0-0.3) K/mm3 Baso # (Auto) 0.0 (0.0-0.1) K/mm3 Abs Immat Gran (auto) 0.06 H (0.00-0.031) K/mm3 Absolute Neuts (auto) 7.2 H (1.3-6.7) K/mm3 Absolute Nucleated RBC 0.000 (0.0-0.012) K/mm3 Nucleated RBC % 0.0 (0.0-0.2) % PT 13.9 (11.1-14.7) Seconds INR 1.0 APTT 26.5 (22.3-36.8) Seconds Sodium 141 (137-145) mmol/L Potassium 3.8 (3.4-5.0) mmol/L Chloride 106 (98-107) mmol/L Carbon Dioxide 22 (22-30) mmol/L Anion Gap 13 H (4-12) mmol/L BUN 27 H D (7-17) mg/dL Creatinine 1.06 H (0.7-1.0) mg/dL Estim Creat Clear Calc 36 ml/min Estimated GFR 49 L (59 - ) Glucose 77 (65-110) mg/dL Calcium 9.0 (8.4-10.2) mg/dL Total Bilirubin 0.5 (0.2-1.3) mg/dL AST 31 (14-36) U/L ALT 19 (6-35) U/L Alkaline Phosphatase 66 (38-126) U/L Total Protein 7.0 (6.3-8.2) g/dL Albumin 4.0 (3.5-5.1) g/dL Urine Color Yellow (Yellow) Urine Appearance Clear (Clear) Urine pH 5.0 (5.0-9.0) Ur Specific [place] 1.021 (1.001-1.035) Urine Protein Negative (Negative) mg/dL Urine Glucose (UA) Negative (Negative) mg/dL Urine Ketones Trace H (Negative) mg/dL Ur Blood (Man) Trace (Negative) Urine Nitrate Positive H (Negative) Urine Bilirubin Negative (Negative) Urine Urobilinogen 0.2 (<2.0) mg/dL Add Ur Microanalysis Reviewed Leukocyte Esterase Rfl 1+ H (Negative) JUAN J/UL Urine RBC 0-2 (0-2) /hpf Urine WBC 21-50 H (0-3) /hpf Ur Squamous Epith Cells None seen (Few) /hpf Calcium Oxalate Crystal Present (None) /hpf Urine Bacteria None seen /hpf Urine Casts 11-20 Ethyl Alcohol < 10 (<10) mg/dL Discharge Plan Discharge Clinical Impression: Urinary tract infection Patient Disposition: Home, Self-Care Condition: Stable Instructions: Antibiotic Form, Urinary Tract Infection in Women (DC) Additional Instructions: Antibiotic as directed until completed. Drink plenty of fluids. Have close follow-up with your primary care physician regarding your recent diabetes diagnosis and your urinary tract infection. Patient Language: Kyrgyz Prescriptions: New cephalexin 500 mg capsule 500 mg PO Q8H 7 Days Qty: 21 0RF No Action cefdinir 300 mg capsule 300 mg PO Q12H ferrous sulfate 325 mg (65 mg iron) tablet 325 mg PO DAILY Qty: 90 3RF cholecalciferol (vitamin D3) 50 mcg (2,000 unit) capsule 50 mcg PO DAILY Qty: 90 3RF docusate sodium 100 mg capsule 100 mg PO DAILY pramipexole 1 mg tablet 1 - 2 mg PO .QHS pregabalin 75 mg capsule 75 mg PO BID valsartan-hydrochlorothiazide 320-25 mg tablet 1 tablet PO DAILY duloxetine 60 mg capsule,delayed release(DR/EC) 60 mg PO DAILY duloxetine 30 mg capsule,delayed release(DR/EC) 30 mg PO DAILY famotidine 40 mg tablet 40 mg PO BID tramadol 50 mg Tablet 50 mg PO Q6H PRN (Reason: Pain, Mild) pravastatin 20 mg Tablet 20 mg PO DAILY polysaccharide iron complex 150 mg iron Capsule 150 mg PO DAILY@0800 30 Days Qty: 30 0RF Follow-up/Referrals: Krystal,DO Anton [Primary Care Provider] -
[2024-08-23 15:33] LABS: Ethanol < 10 mg/dL (<10)
[2024-08-23] MEDS: SODIUM CHLORIDE 0.9% IV 500 ML 999 ML IV CONT (15:41)
[2024-08-23 15:54] VITALS: BP 102/46; BP 115/57; BP 99/53; PULSE 66; PULSE 67; PULSE 71
[2024-08-23 16:13] LABS: Add Urine Microscopic? YES; Appearance Urine Clear (Clear); Bacteria Urine None Seen /hpf; Bilirubin Urine Negative (Negative); Blood Urine Trace (Negative); Calcium Oxalate Crystals Urine Present /hpf; Color Urine Yellow (Yellow); Glucose Urine UA Negative (Negative); Ketones Urine Trace mg/dL (Negative); Leukocyte Esterase Ur 1+ LEU/UL (Negative); Need Manual Microscopic Reviewed; Nitrate Urine Positive (Negative); Protein Urine Negative (Negative); RBC Urine 0-2 /hpf (0-2); Specific Grav Ur 1.021 (1.001-1.035); Squamous Epithelial Cell Urine None Seen /hpf (Few); Urobilinogen Urine 0.2 mg/dL (<2.0); WBC Urine 21-50 /hpf (0-3)
[2024-08-23 16:45] VITALS: BP 100/51; PULSE 56; RESP 19; O2SAT 97
[2024-08-23 18:00] VITALS: BP 94/80; PULSE 63; RESP 17; O2SAT 96
== END 2024-08-23 18:02 | disposition home or self-care (01) ==
PROVIDERS: Emergency Provider Emergency Medicine; PCP Student in an Organized Health Care Education/Training Program
DX: N39.0 Urinary tract infection, site not specified (principal); K21.9 Gastro-esophageal reflux disease without esophagitis; F32.A Depression, unspecified; E78.5 Hyperlipidemia, unspecified; I10 Essential (primary) hypertension; Z87.891 Personal history of nicotine dependence
CPT/HCPCS: 36415; 70450; 80053; 81001; 82077; 85025; 85610; 85730; 87086; 87186; 93005; 96365; 99284; J0696; J7040

== ENCOUNTER 2024-11-12 12:56 | Outpatient (CLI) | payer MEDICARE, OTHER, SELFPAY ==
--- NOTE | ~2024-11-12 | MM_ITS ---
EXAMINATION: MM screening [facility] BI w pablo HISTORY: Screening TECHNIQUE: Craniocaudal and mediolateral oblique 3-D tomosynthesis images were obtained and synthetic 2-D images were generated. CAD analysis was submitted and interpreted. COMPARISON: Comparison to multiple prior studies sequentially, with oldest reviewed study dated 10/08. BREAST PARENCHYMAL COMPOSITION: Not dense: There are scattered areas of fibroglandular density. FINDINGS: There is no evidence of suspicious mass, calcification, or architectural distortion to sugg est malignancy in either breast. There has been no suspicious interval change. IMPRESSION: 1. No mammographic evidence of malignancy. 2. Recommend routine screening mammography in one year. BI-RADS Category 1: Negative Reviewed, dictated and finalized at location A.
== END 2024-11-12 12:57 | disposition home or self-care (01) ==
LOC: MICIMG 12:57
PROVIDERS: PCP Student in an Organized Health Care Education/Training Program; Visit Provider Student in an Organized Health Care Education/Training Program
DX: Z12.31 Encounter for screening mammogram for malignant neoplasm of breast (principal)
CPT/HCPCS: 77063; 77067